=== PATIENT | male | born 1930 | race Caucasian/White ===

== ENCOUNTER 2018-02-16 17:02 | Inpatient (IN) | payer OTHER ==
--- OUTSIDE RECORDS SUMMARY | 2018-02-16 17:08 | XMS REPORT | Clinical Summary ---
:1930 Author Organization [facility] Address [address] [place] [address] Care Team Providers Name Role Phone Romeo Ahuja MD Primary Care Provider Allergies Active Allergy Reactions Severity Noted Date Comments No Known Drug Allergies 07/26/2016 Current Medications Prescription Sig. Disp. Refills Start Date End Date Status mesalamine Take 2,400 mg by Active (LIALDA) 1.2 gram mouth daily with EC tablet breakfast. potassium chloride Take 20 mEq by Active (K-DUR) 20 MEQ CR mouth 2 (two) tablet times a day. febuxostat Take by mouth Active (ULORIC) 80 mg daily. tablet escitalopram Take 10 mg by Active (LEXAPRO) 10 MG mouth daily. tablet B complex-vitamin Take 1 tablet by Active C-folic acid mouth daily. (FOLBEE PLUS) 5 mg tablet tamsulosin Take 0.4 mg by Active (FLOMAX) 0.4 mg mouth daily. capsule,extended release 24hr simvastatin Take 20 mg by Active (ZOCOR) 20 MG mouth nightly. tablet Lactobacillus Take 1 tablet by Active acidoph-L.bulgar mouth 3 (three) (FLORANEX) 1 times a day. million cell tablet aspirin (ECOTRIN) Take 81 mg by Active 81 MG enteric mouth daily. coated tablet dorzolamide 1 drop 3 (three) Active (TRUSOPT) 2 % times a day. ophthalmic solution albuterol Inhale 2 puffs Active (PROVENTIL every 6 (six) HFA;VENTOLIN HFA) hours as needed 90 mcg/actuation for wheezing. inhaler formoterol Take 20 mcg by Active fumarate nebulization 2 (PERFOROMIST) 20 (two) times a mcg/2 mL nebulizer day. solution latanoprost 1 drop nightly. Active (XALATAN) 0.005 % ophthalmic solution rivaroxaban Take 20 mg by Active (XARELTO) 20 mg mouth. tablet allopurinol Take 300 mg by Active (ZYLOPRIM) 300 MG mouth daily. tablet HYDROcodone-acetam Take 1 tablet by Active inophen (NORCO) mouth every 6 5-325 mg per (six) hours as tablet needed for moderate pain. furosemide (LASIX) Take 40 mg by Active 40 mg tablet mouth 2 (two) times a day. traMADol (ULTRAM) Take 50 mg by 08/22/20 Discontinued 50 mg tablet mouth every 6 17 (six) hours as needed for moderate pain. cilostazol Take 100 mg by 08/22/20 Discontinued (PLETAL) 100 MG mouth 2 (two) 17 tablet times a day. furosemide 40 mg/4 Take by mouth. 01/23/20 Discontinued mL solution 18 esomeprazole Take 40 mg by 09/07/20 Discontinued (NexIUM) 40 MG mouth daily 17 capsule before breakfast. predniSONE Take 10 mg by 08/22/20 Discontinued (DELTASONE) 10 MG mouth daily. 17 tablet UNABLE TO FIND Inhale 6.2 mg 09/22/20 Discontinued daily. Incruse 17 acetaminophen-code Take 1 tablet by 40 tablet 0 09/17/2017 10/01/20 ine (TYLENOL WITH mouth every 6 17 CODEINE #3) 300-30 (six) hours as mg per tablet needed for moderate pain for up to 40 doses. calcitriol Take 1 capsule 30 capsule 0 09/17/2017 10/17/20 (ROCALTROL) 0.25 (0.25 mcg total) 17 MCG capsule by mouth daily for 30 days. enoxaparin Inject 0.4 mL (40 12 mL 0 09/22/2017 10/22/20 (LOVENOX) 40 mg total) under 17 mg/0.4 mL syringe the skin daily for 30 days. acetaminophen-code Take 1 tablet by 40 tablet 0 01/30/2018 02/10/20 ine (TYLENOL WITH mouth every 6 18 CODEINE #3) 300-30 (six) hours as mg per tablet needed for moderate pain for up to 40 doses. 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 Symptoms seem to be questionably worsening. ABIs slightly worse, now 0.3 on R, 0.6 on the L. Plan for bilateral leg arterial duplex. Atherosclerosis of arteries of extremities 04/12/2012 Chronic obstructive pulmonary disease 04/10/2012 Coronary atherosclerosis 04/10/2012 Gout 04/10/2012 Heart failure 04/10/2012 Swelling of limb 04/10/2012 Encounters Date Type Specialty Care Team Description 02/09/2018 Orders Only Cardiovascular Chris PAD (peripheral ÁNGEL Hastings artery disease) (Primary Dx) 01/30/2018 Refill Cardiovascular Darling Perez RN 01/23/2018 Office Visit Rosemarie Mansfield, Visit for wound MD check (Primary Dx) 12/05/2017 Office Visit Cardiovascular Rosemarie Amanda, Visit for wound MD check (Primary Dx) 11/14/2017 Office Visit Cardiovascular Rosemarie Amanda, Visit for wound MD check (Primary Dx) 11/09/2017 Telephone Darling Mi RN 11/07/2017 Office Visit Cardiovascular Rosemarie Amanda, Visit for wound MD check (Primary Dx) 11/04/2017 Office Visit Cardiovascular Rosemarie Amanda Wound check, MD abscess (Primary Dx) 11/03/2017 Telephone Cardiovascular Chris Deep vein ÁNGEL Hastings thrombosis (DVT) of right lower extremity, unspecified chronicity, unspecified vein (Primary Dx) 10/17/2017 Office Visit Rosemarie Mansfield, Visit for wound MD check (Primary Dx) 10/07/2017 Telephone Darling Mi RN 09/16/2017 Anesthesia Event Cardiothoracic Surgery Dev Roman 09/16/2017 Procedure Pass Cardiothoracic Surgery 09/16/2017 Surgery Cardiothoracic Surgery Rosemarie Amanda, RIGHT POPLITEAL MD EXPOSURE AND ANGIOGRAM 09/11/2017 Anesthesia Event Cardiothoracic Surgery Anselmo Sorenson, TRACY 09/11/2017 Procedure Pass Cardiothoracic Surgery 09/11/2017 Surgery Cardiothoracic Surgery Estefnaia Desai Arteriogram MD Qamar diagnostic, Right 09/11/2017 Procedure Pass Cardiothoracic Surgery 09/09/2017 Anesthesia Event Cardiothoracic Surgery Roman, Dorissa 09/08/2017 Anesthesia Event Cardiothoracic Surgery Roman, Dorissa 09/08/2017 Procedure Pass Cardiothoracic Surgery 09/08/2017 Surgery Cardiothoracic Surgery Rosemarie Amanda DIAGNOSTIC MD ARTERIOGRAM 09/07/2017 - Hospital Encounter Cardiology Maurice Shahram PAD (peripheral artery disease) (Primary Dx); 09/22/2017 MD Rich Critical lower limb ischemia 09/07/2017 Ancillary Orders Procedural Cardiology PAD (peripheral artery disease) 09/07/2017 Orders Only Cardiovascular [facility] Critical lower limb , [place], [employer] ischemia (Primary Dx) 09/07/2017 Ancillary Orders Cardiovascular Estefania Desai PAD (law Foote MD artery disease) 08/22/2017 Office Visit Cardiovascular Estefania Desai PAD (law Foote MD artery disease) (Primary Dx) 08/02/2017 Orders Only Cardiovascular Solano, PAD (peripheral Susu artery disease) (Primary Dx) 07/18/2017 Orders Only Cardiovascular Estefania Desai PVD (law Foote MD vascular disease) (Primary Dx) 07/18/2017 Orders Only Cardiovascular Estefania Desai PVD (law Foote MD vascular disease) (Primary Dx) 07/18/2017 Orders Only Cardiovascular Estefania Desai PVD (law Foote MD vascular disease) (Primary Dx) 04/04/2017 Office Visit Cardiovascular Pinky, Claudication Phil Martinez (Primary Dx) after 02/15/2017 Family History Relation Name Status Comments Father Mother Social History Tobacco Use Types Packs/Day Years Used Date Former Smoker Cigarettes Quit: 1994 Smokeless Tobacco: Never Used Alcohol Use Drinks/Week oz/Week Comments No STOPPED DRINKING 1994 Sex Assigned at Date Recorded Not on file Last Filed Vital Signs Vital Sign Reading Time Taken Blood Pressure 97/63 01/23/2018 9:35 AM [employer] Pulse 97 01/23/2018 9:35 AM [employer] Temperature 35.5 C (95.9 F) 01/23/2018 9:35 AM [employer] Respiratory Rate 14 01/23/2018 9:35 AM [employer] Oxygen Saturation 96% 09/22/2017 4:44 PM CDT Inhaled Oxygen Concentration - - Weight 67.6 kg (149 lb) 10/17/2017 10:41 AM [employer] Height 165.1 cm (5' 5") 01/23/2018 9:35 AM [employer] Body Mass Index 26.39 10/17/2017 10:41 AM [employer] Plan of Treatment Date Type Specialty Care Team Description 07/26/2018 Appointment Procedural Cardiology Estefania Desai MD [address] [place] [address] [phone] 07/25/2019 Appointment Procedural Cardiology Estefania Desai MD [address] [phone] Health Maintenance Due Date Last Done Comments ZOSTER VACCINE 1988 PNEUMOCOCCAL POLYSACCHARIDE VACCINE AGE 65 AND OVER 1993 PNEUMOCOCCAL-13 1993 INFLUENZA VACCINE 06/28/2017 Implants Implanted Type Area Buffer Nickel Device Expiration Model / Identifier Date Serial / Lot Eliot [id number] Marrowstim Pad Kit - [id number] Medical BIOMET 800 0611 / Implanted: Qty: 1 on 07/26/2016 by Phil Vance MD [employer] / [employer] Research Eliot [id number] Cbma Convenience Kit - [id number] Medical BIOMET 800 0710 / Implanted: Qty: 1 on 07/26/2016 by Phil Vance MD [employer] / [employer] Research Eliot [id number] Fluid Delivery Instrument - [id number] Medical BIOMET 800 [id number] / Implanted: Qty: 2 on 07/26/2016 by Phil Vance MD [employer] / [employer] Research Eliot [id number] Biomet Biologics Centrifuge - [id number] Medical BIOMET [id number] / Implanted: Qty: 1 on 07/26/2016 by Phil Vance MD [employer] / & Research Eliot [id number] Counterbalance Centrifuge - [id number] Medical BIOMET 800 0508 / Implanted: Qty: 1 on 07/26/2016 by Phil Vance MD [employer] / & Research Eliot [id number] Spare Bucket Kits - [id number] Medical BIOMET [id number] / Implanted: Qty: 1 on 07/26/2016 by Phil Vance MD [employer] / & Research Fibrin Sealant Patch Evarrest - [id number] Surgical N/A: ETHICON 2018 [id number] / Implanted: 09/16/2017 (Quantity not on file) Implants; N/A ENDO-SURGERY / Expanders; [id number] Extenders; Surgical Wires Procedures Procedure Name Priority Date/Time Associated Diagnosis Comments AL AN ELECTIVE Routine 09/16/2017 1:53 PM ENDOTRACHEAL AIRWAY CDT Procedure Note - Karl Bergman MD - 09/16/2017 11:38 AM CDT Airway Date/Time: 09/16/2017 11:10 AM Performed by: KARL BERGMAN Authorized by: KARL BERGMAN Location: OR Urgency: Elective Anesthesiologist: KARL BERGMAN Resident/EQUINE PHARMACOLOGY TECHNICIAN: JONATAN BROWN Other Anesthesia Staff: DEV ROMAN Performed by: other anesthesia staff Preoxygenated with 100% O2: Yes C-spine Precautions Maintained Throughout: Yes Mask Ventilation: Easy mask Final Airway Type: Endotracheal airway Final Endotracheal Airway: ETT Cuffed: Yes Devices/Methods Used in Placement: Intubating stylet Insertion Site: Oral Blade Type: Quinn Laryngoscope Blade/Videolaryngoscope Blade Size: 2 ETT Size (mm): 8.0 Cuff at minimum occlusion pressure: Yes Measured from: Lips ETT to Lips (cm): 23 Placement Verified by: CO2 detection, direct visualization and equal breath sounds Rapid Sequence Induction (RSI): No Modified RSI: No Number of Attempts at Approach: 1 ARTERIAL LINE Routine 09/16/2017 12:28 PM CDT Procedure Note - Karl Bergman MD - 09/16/2017 11:39 AM CDT Arterial line Performed by: KARL BERGMAN Authorized by: KARL BERGMAN Patient Location: Pre-op Start Time: 09/16/2017 11:39 AM End Time: 09/16/2017 11:39 AM Staff: Anesthesiologist: KARL BERGMAN Other Staff: DEV ROMAN Performed by: Other staff Pre-procedure: patient identified, IV checked, site and side verified, risks and benefits discussed, procedure verified, surgical consent complete, patient position confirmed, monitors and equipment checked and pre-op evaluation complete MSBT: antiseptic used, all elements of maximal sterile barrier technique followed, hand hygiene performed, cap/gown used by other personnel and solutions labeled TIme Out Performed: 09/16/2017 11:40 AM Indications: Indications: hemodynamic monitoring Anesthesia: Anesthesia: Local infiltration Procedure Details: Arterial Line placement: Placed pre-induction Line placement site: Radial Line placement side: Right Arterial line gauge: 20 G Number of attempts: 1 Ultrasound guidance used: No Post-procedure: Post-procedure: Sterile dressing applied Post procedure circulation, sensation, movement: Normal and unchanged Patient tolerance: Patient tolerated the procedure well with no immediate complications CV JOSE MANUEL PROCEDURE PACEMAKER EVALUATION Routine 09/12/2017 3:49 PM CDT AL AN ELECTIVE SUPRAGLOTTIC AIRWAY Routine 09/11/2017 9:45 AM CDT Procedure Note - Anselmo Sorenson CRNA - 09/11/2017 9:14 AM CDT Airway Performed by: WILLIAM COBB Authorized by: WILLIAM COBB Location: OR Urgency: Elective Difficult Airway: No Anesthesiologist: WILLIAM COBB Resident/EQUINE PHARMACOLOGY TECHNICIAN: ANSELMO SORENSON Performed by: resident/EQUINE PHARMACOLOGY TECHNICIAN Preoxygenated with 100% O2: Yes C-spine Precautions Maintained Throughout: Yes Mask Ventilation: Easy mask Final Airway Type: Supraglottic airway Final LMA: I-Gel LMA Size: 4 Number of Attempts at Approach: 1 atraumatic ARTERIAL LINE Routine 09/11/2017 9:44 AM CDT Procedure Note - Anselmo Sorenson CRNA - 09/11/2017 9:15 AM CDT Arterial line Performed by: WILLIAM COBB Authorized by: WILLIAM COBB Patient Location: OR Staff: Anesthesiologist: WILLIAM COBB Performed by: Anesthesiologist Pre-procedure: patient identified, IV checked, site and side verified, risks and benefits discussed, procedure verified, surgical consent complete, patient position confirmed, monitors and equipment checked and pre-op evaluation complete MSBT: antiseptic used, all elements of maximal sterile barrier technique followed, hand hygiene performed, cap/gown used by other personnel and solutions labeled Indications: Indications: multiple ABGs and hemodynamic monitoring Anesthesia: Anesthesia: General Procedure Details: Arterial Line placement: Placed pre-induction Line placement site: Radial Line placement side: Right Arterial line gauge: 20 G Number of attempts: 1 Ultrasound guidance used: Yes Post-procedure: Post-procedure: Sterile dressing applied Post procedure circulation, sensation, movement: Normal and unchanged Patient tolerance: Patient tolerated the procedure well with no immediate complications AL AN ELECTIVE SUPRAGLOTTIC AIRWAY Routine 09/08/2017 6:32 PM CDT Procedure Note - Dominik Patino CRNA - 09/08/2017 6:31 PM CDT Airway Performed by: DOMINIK PATINO Authorized by: GLENYS REECE Location: OR Urgency: Elective Difficult Airway: No Anesthesiologist: GLENYS REECE Resident/EQUINE PHARMACOLOGY TECHNICIAN: DOMINIK PATINO Preoxygenated with 100% O2: Yes C-spine Precautions Maintained Throughout: Yes Final Airway Type: Supraglottic airway Final LMA: Classic (igel 4) LMA Size: 4 Number of Attempts at Approach: 1 Atraumatic x1 attempt ECHOCARDIOGRAM 2D COMPLETE W Routine 09/08/2017 1:51 PM CDT Results for this MMODE SPECTRAL COLOR DOPPLER procedure are in the (02725) results section. after 02/15/2017 Results PV duplex venous lower extremity (11/04/2017 12:42 PM) Specimen Performing Laboratory [facility] [address] [place] [address] Narrative PER[facility]HERAL [facility]ASCULAR LABORATORY Lower Extremity Venous Duplex Report [id number] [facility] [address] [address] [facility].Name:Zack ROWLEY.ID:[id number] .Date: 11/04/2017 Refer.MD:ROSEMARIE AMANDA MD Exam Time: 11:50:00 AM Study Type:LE Venous Height:63inDOBAge:1929,87 Y Sex: MALESonogrphr: Cordelia Nieto RVT TapeVol: KF, CPT - 4: 05853 Echo Event ID:[id number] Order ID:[id number] Reason for Study:Right lower extremity pain and swelling and per patient was told he has a blood clot. Procedures:12/16/2011ngioplasty of the left anterior tibial artery, 11/16/2013left femoral to popliteal artery bypass graft (ipsilat reversed saphenous vein), 10/18/2014 angioplasty of the right peroneal artery and left anterior tibial artery, 12/23/2015 angioplasty of the proximal anastomosis of the left SFA to popliteal artery bypass Race:B SUMMARY: DUPLEX SCAN OBSERVATIONS Bass scale and color Doppler imaging of the right lower extremity demonstrates: Deep Veins RightLeft CFV Patent Patent Femoral Mid Patent Profunda Patent Popliteal Patent PT (prox) Not Visualized PT (dist) Not Visualized Peroneal Not Visualized Superficial Veins GSV (prox) Patent (above knee) GSV (dist) Patent (below knee) SSVPatent RIGHT:Normal compressibility with no evidence of echogenic material in the lumen of the above visualized veins. Colorflow and Doppler signals demonstrate patency.There is a non-vascular structure in the proximal calf measuring 1.04 x 3.78 x 10.4 cm.The posterior tibial and peroneal veins were not visualized due to edema. LEFT: Normal findings in the common femoral vein. Patient seen in clinic today by Dr. Amanda. PHYSICIAN INTERPRETATION: 1. No evidence of venous thrombosis, right lower extremity 2. Doppler signals obtained in the bilateral common femoral vein are not comparable with the left more pulsatile than the right.. 3.Right posterior tibial and peroneal veins were not visualized due to edema. Signed 11/07/2017 08:56 AM Rosemarie Amanda MD, RPVI Procedure Note Interface, Radiology Results In - 11/07/2017 8:57 AM DIRECT[employer] SERVICES PERIPHERAL VASCULAR LABORATORY Lower Extremity Venous Duplex Report [id number] [facility], [address], [place] [address] Pat.Name: HAROLDO ROWLEY Pat.ID: [id number] .Date: 11/04/2017 Refer.MD: ROSEMARIE AMANDA MD Exam Time: 11:50:00 AM Study Type:LE Venous Height: 63in Age: 9 1930,87Y Sex: MALE Sonogrphr: Cordelia Nieto RVT Tape Vol: KF, CPT - 4: 22511 Echo Event ID:[id number] Order ID: [id number] Reason for Study:Right lower extremity pain and swelling and per patient was told he has a blood clot. Procedures:12/16/2011 angioplasty of the left anterior tibial artery, 11/16/2013 left femoral to popliteal artery bypass graft (ipsilat reversed saphenous vein), 10/18/2014 angioplasty of the right peroneal artery and left anterior tibial artery, 12/23/2015 angioplasty of the proximal anastomosis of the left SFA to popliteal artery bypass Race: B SUMMARY: DUPLEX SCAN OBSERVATIONS Bass scale and color Doppler imaging of the right lower extremity demonstrates: Deep Veins Right Left CFV Patent Patent Femoral Mid Patent Profunda Patent Popliteal Patent PT (prox) Not Visualized PT (dist) Not Visualized Peroneal Not Visualized Superficial Veins GSV (prox) Patent (above knee) GSV (dist) Patent (below knee) SSV Patent RIGHT: Normal compressibility with no evidence of echogenic material in the lumen of the above visualized veins. Colorflow and Doppler signals demonstrate patency. There is a non-vascular structure in the proximal calf measuring 1.04 x 3.78 x 10.4 cm. The posterior tibial and peroneal veins were not visualized due to edema. LEFT: Normal findings in the common femoral vein. Patient seen in clinic today by Dr. Amanda. PHYSICIAN INTERPRETATION: 1. No evidence of venous thrombosis, right lower extremity 2. Doppler signals obtained in the bilateral common femoral vein are not comparable with the left more pulsatile than the right.. 3. Right posterior tibial and peroneal veins were not visualized due to edema. Signed 11/07/2017 08:56 AM Rosemarie Amanda MD, RPVI Estimated GFR (09/21/2017 4:00 AM)Only the most recent of14 resultswithin the time period is included. Component Value Ref Range GFR Non Af Amer 52 (A) mL/min/1.73 m2 GFR Af Amer 63 mL/min/1.73 m2 Comment: Chronic kidney disease: <60 mL/min/1.73m2 Kidney failure: <15 mL/min/1.73m2 The estimated GFR is calculated from the IDMS-traceable Modification of Diet in Renal Disease Equation. The accuracy of the calculation is poor when the creatinine is normal. Calculated values >90 mL/min/1.73m2 are not reported. This equation has not been validated in children (<18 years), women, the elderly (>70 years), or ethnic groups other than Caucasians and Americans. Specimen Performing Laboratory Plasma specimen [facility] DEPARTMENT OF PATHOLOGY AND [address] [address] Phosphorus level (09/21/2017 4:00 AM)Only the most recent of5 resultswithin the time period is included. Component Value Ref Range Phosphorus 3.9 2.4 - 4.5 mg/dL Specimen Performing Laboratory Plasma specimen [facility] OF PATHOLOG[facility] [address] [address] Magnesium level (09/21/2017 4:00 AM)Only the most recent of9 resultswithin the time period is included. Component Value Ref Range Magnesium 2.1 1.6 - 2.4 mg/dL Specimen Performing Laboratory Plasma specimen [facility] PATHOLOGY [address] [address] Basic metabolic panel (09/21/2017 4:00 AM)Only the most recent of13 resultswithin the time period is included. Component Value Ref Range Sodium 141 135 - 148 mEq/L Potassium 4.1 3.5 - 5.0 mEq/L Chloride 104 98 - 112 mEq/L CO2 22 (L) 24 - 31 mEq/L Anion gap 15 7 - 15 mEq/L Comment: Starting from February , anion gap calculation no longer incorporates potassium. Please note the change. BUN 33 (H) 8 - 23 mg/dL Creatinine 1.3 (H) 0.7 - 1.2 mg/dL Glucose 101 (H) 65 - 99 mg/dL Calcium 9.0 8.8 - 10.2 mg/dL Specimen Performing Laboratory Plasma specimen [facility] [address] [address] POC glucose (09/19/2017 9:09 PM)Only the most recent of9 resultswithin the time period is included. Component Value Ref Range POC glucose 124 (H) 65 - 99 mg/dL Comment: [facility] Notified RN Meter ID: [id number] Manager Retirement: Mitchell John Specimen Performing Laboratory [facility] DEPARTMENT OF PATHOLOGY AND [facility] [address] [place] [address] CBC with platelet and differential (09/19/2017 5:00 AM)Only the most recent of12 resultswithin the time period is included. Component Value Ref Range WBC 6.52 4.50 - 11.00 k/uL RBC 4.18 (L) 4.40 - 6.00 m/uL HGB 9.7 (L) 14.0 - 18.0 g/dL HCT 32.4 (L) 41.0 - 51.0 % MCV 77.5 (L) 82.0 - 100.0 fL MCH 23.2 (L) 27.0 - 34.0 pg MCHC 29.9 (L) 31.0 - 37.0 g/dL RDW - SD 53.3 37.0 - 55.0 fL MPV 11.6 8.8 - 13.2 fL Platelet count 124 (L) 150 - 400 k/uL Nucleated RBC 0.30 /100 WBC Neutrophils 66.6 39.0 - 69.0 % Lymphocytes 19.3 (L) 25.0 - 45.0 % Monocytes 9.7 0.0 - 10.0 % Eosinophils 3.4 0.0 - 5.0 % Basophils 0.5 0.0 - 1.0 % Immature granulocytes 0.5Comment: "Immature granulocytes" 0.0 - 1.0 % (promyelocytes, myelocytes, metamyelocytes) Specimen Performing Laboratory Blood [facility] DEPARTMENT OF PATHOLOGY AND [facility] [address] [place] [address] Partial thromboplastin time, activated (09/17/2017 6:30 AM)Only the most recent of4 resultswithin the time period is included. Component Value Ref Range PTT 34.4 23.0 - 36.0 sec Comment: PTT therapeutic range for unfractionated heparin is 61.0-112.0 seconds which corresponds to Anti-Xa 0.3-0.7 U/ml. Specimen Performing Laboratory Blood [facility] DEPARTMENT OF PATHOLOGY AND [facility] [address] [place] [address] Prothrombin time with INR (09/17/2017 6:30 AM)Only the most recent of5 resultswithin the time period is included. Component Value Ref Range Prothrombin time 14.8 12.0 - 15.0 sec INR 1.1 Comment: The International Normalized Ratio (INR) is a therapeutic monitoring tool for patients who are stable on oral anticoagulant therapy. An INR of 2.0-3.0 is suggested for deep vein thrombosis/pulmonary embolism. Specimen Performing Laboratory Blood [facility] DEPARTMENT OF PATHOLOGY [address] [address] Sodium level, syringe (09/16/2017 12:45 PM)Only the most recent of4 resultswithin the time period is included. Component Value Ref Range Sodium, syringe 139 135 - 148 mEq/L Specimen Performing Laboratory Blood [facility]OLOG[facility] [address] [address] Potassium, syringe (09/16/2017 12:45 PM)Only the most recent of4 resultswithin the time period is included. Component Value Ref Range Potassium, syringe 4.1 3.5 - 5.0 mEq/L Specimen Performing Laboratory Blood [facility] [address] [address] Ionized calcium, arterial (09/16/2017 12:45 PM)Only the most recent of4 resultswithin the time period is included. Component Value Ref Range Ionized calcium, arterial 1.10 (L) 1.11 - 1.32 mmol/L Specimen Performing Laboratory Blood [facility] [address] [address] Hemoglobin, syringe (09/16/2017 12:45 PM)Only the most recent of4 resultswithin the time period is included. Component Value Ref Range Hemoglobin, syringe 9.4 (L) 14.0 - 18.0 g/dL Specimen Performing Laboratory Blood [facility] [address] [address] Glucose level, syringe (09/16/2017 12:45 PM)Only the most recent of4 resultswithin the time period is included. Component Value Ref Range Glucose, syringe 115 (H) 65 - 99 mg/dL Specimen Performing Laboratory Blood [facility] [address] [address] Arterial blood gas (09/16/2017 12:45 PM) Component Value Ref Range pH, arterial 7.41 7.35 - 7.45 pCO2, arterial 31 (L) 35 - 45 mmHg pO2, arterial 232 (H) 80 - 90 mmHg Bicarbonate, arterial 19.4 (L) 21.0 - 28.0 mmol/L Base excess, arterial -4 (L) -2 - 2 mEq/L O2 saturation, arterial 99 95 - 100 % Specimen Performing Laboratory Blood [facility] DEPARTMENT OF PATHOLOGY AND [facility] [address] [place] [address] Arterial blood gas, corrected (09/16/2017 11:58 AM)Only the most recent of3 resultswithin the time period is included. Component Value Ref Range pH, arterial 7.35 7.35 - 7.45 pCO2, arterial 31 (L) 35 - 45 mmHg pO2, arterial 266 (H) 80 - 90 mmHg Temperature, Celsius 37.0 Degrees C O2 saturation, arterial 99 95 - 100 % pH, arterial corrected 7.35 pCO2, arterial corrected 31 mmHg pO2, arterial corrected 266 mmHg Base excess, arterial -8 (L) -2 - 2 mEq/L Specimen Performing Laboratory Blood [facility] DEPARTMENT OF PATHOLOGY [address] [address] Prepare RBC (09/16/2017 4:25 AM) Component Value Ref Range Product name Apheresis -1 LR #2 Unit number [id number] Product code [id number] Dispense status Returned to BB not transfused Blood expiration date 20170922 Blood type code 5100 Blood type O POSITIVE Product name Apheresis -1 LR #2 Unit number [id number] Product code [id number] Dispense status Returned to BB not transfused Blood expiration date 20170922 Blood type code 5100 Blood type O POSITIVE Specimen Performing Laboratory [facility] DEPARTMENT OF PATHOLOGY AND [facility] [address] [place] [address] Type and screen (09/16/2017 4:25 AM)Only the most recent of3 resultswithin the time period is included. Component Value Ref Range ABO grouping O Rh type POS Antibody screen (gel) NEG Specimen Performing Laboratory [facility] DEPARTMENT OF PATHOLOGY AND [facility] [address] [place] [address] Pv duplex arterial lower extremity (09/14/2017 10:10 AM)Only the most recent of2 resultswithin the time period is included. Specimen Performing Laboratory [facility] [address] [place] [address] Narrative Vascular Ultrasound Laboratory Lower Extremity Arterial Duplex Report [id number] [address] Pat.Name:Zack ROWLEY.ID:[id number] .Date: 09/14/2017Refer.MD:ESTEFANIA DESAI MD Exam Time: 10:13:00 AM Study Type:LE Arterial Height:63inWeight:145lb BSA: 1.69 m2 DOBAge:1930,87Y Sex: MALESonogrphr: Hrainder Hazel RN, RVS Pat. Stat.:Inpatient Room:[facility] TapeVol: PM, CPT - 4: 46681 Echo Event ID:[id number] Order ID:[id number] Reason for Study:Right leg pain, right popliteal artery enlarged and occluded. Assess flow in right leg and measure diameter of bilateral popliteal artery. Race:B SUMMARY: DUPLEX SCAN OBSERVATIONS: RIGHT:There is calcified plaque noted in the common femoral, profunda femoris and superficial femoral arteries. Decreased velocities and colorflow. There is a collateral noted extending from the distal superficial femoral artery. Absent colorflow and Doppler signals of the distal superficial femoral artery just distal to the visualized collateral. The popliteal artery appears enlarged (measuring 1.39 x 1.18 cm) with echogenic material filling the arterial lumen, absent coloflow and Doppler signals. Calcified plaque is noted in the posterior tibial artery with absent colorflow and Doppler signals. Calcified plaque is noted in the peroneal and anterior tibial artery with monophasic Doppler signals noted. Flow is absent in the distal anterior tibial artery. DOPPLER FINDINGS: ARTERYLOCATIONPSV (cm/sec) RIGHTCommon Femoral Proximal-third 23.3 cm/sec Profunda Femoris Distal-third 41.0 cm/sec Superficial Femoral Proximal-third 36.8cm/sec Mid-third22 cm/sec Distal- third0 cm/sec RdzhkioriyRrsnfssv28.5cm/sec PoplitealProximal-third 0 cm/sec Posterior TibialProximal-third 0 cm/sec Mid-third0 cm/sec Distal-third0 cm/sec Peroneal Artery Proximal-third 14.4cm/sec Mid-third13.3cm/sec Distal-third12.7cm/sec Anterior Tibial Proximal-third 15.5cm/sec Mid-third14.4cm/sec Distal-third0.0cm/sec ANKLE/BRACHIAL INDEX: RIGHTLEFT Brachial Artery Pressure 100 mmHgIV DP19 [id number] PT0 mmHg0 mmHg KAREN DP0.190.31 KAREN PT TOE/BRACHIAL INDEX: Great Toe0 mmHg0 mmHg TBI0 0 Popliteal Artery Measurements RIGHTLEFT 1.39 x 1.18cm 0.67 x 0.67cm PRELIMINARY FINDINGS: 1.Decreased velocities noted in the right common femoral, profunda femoris and superficial femoral arteries. 2. The right distal segment of the superficial femoral artery is occluded with a collateral noted proximal to the occlusion. 3.The right popliteal artery appears enlarged (measuring 1.39 x 1.18 cm) with echogenic material filling the arterial lumen, absent coloflow and Doppler signals. 4. Occluded right posterior tibial artery. 5. Monophasic Doppler signals in the right peroneal and anterior tibial artery. 6. Ankle/brachial index bilaterally is in the severe/ ischemic range. 7. Toe/brachial index is in the severe range bilaterally. PHYSICIAN INTERPRETATION: Arterial duplex examination ofright lower extremity demonstrates multi-level arterial occlusive disease. ABIs arein the severe/ ischemic range bilaterally. Toe/brachial index is in the severe range bilaterally. Signed 09/14/2017 08:31 PM Phillip Regalado MD, RPVI Procedure Note Interface, Radiology Results In - 09/14/2017 8:32 PM CDT Vascular Ultrasound Laboratory Lower Extremity Arterial Duplex Report [id number] [place] [address] Pat.Name: HAROLDO ROWLEY Pat.ID: [id number] .Date: 09/14/2017 Refer.MD: ESTEFANIA DESAI MD Exam Time: 10:13:00 AM Study Type:LE Arterial Height: 63in Weight: 145lb BSA: 1.69 m2 Age: 7 1930,87Y Sex: MALE Sonogrphr: Harinder Hazel, RN, RVS Pat. Stat.:Inpatient Room: [facility] Tape Vol: PM, CPT - 4: 45492 Echo Event ID:[id number] Order ID: [id number] Reason for Study:Right leg pain, right popliteal artery enlarged and occluded. Assess flow in right leg and measure diameter of bilateral popliteal artery. Race: B SUMMARY: DUPLEX SCAN OBSERVATIONS: RIGHT: There is calcified plaque noted in the common femoral, profunda femoris and superficial femoral arteries. Decreased velocities and colorflow. There is a collateral noted extending from the distal superficial femoral artery. Absent colorflow and Doppler signals of the distal superficial femoral artery just distal to the visualized collateral. The popliteal artery appears enlarged (measuring 1.39 x 1.18 cm) with echogenic material filling the arterial lumen, absent coloflow and Doppler signals. Calcified plaque is noted in the posterior tibial artery with absent colorflow and Doppler signals. Calcified plaque is noted in the peroneal and anterior tibial artery with monophasic Doppler signals noted. Flow is absent in the distal anterior tibial artery. DOPPLER FINDINGS: ARTERY LOCATION PSV (cm/sec) RIGHT Common Femoral Proximal-third 23.3 cm/sec Profunda Femoris Distal-third 41.0 cm/sec Superficial Femoral Proximal-third 36.8cm/sec Mid-third 22 cm/sec Distal- third 0 cm/sec Collateral Proximal 20.5cm/sec Popliteal Proximal-third 0 cm/sec Posterior Tibial Proximal-third 0 cm/sec Mid-third 0 cm/sec Distal-third 0 cm/sec Peroneal Artery Proximal-third 14.4cm/sec Mid-third 13.3cm/sec Distal-third 12.7cm/sec Anterior Tibial Proximal-third 15.5cm/sec Mid-third 14.4cm/sec Distal-third 0.0cm/sec ANKLE/BRACHIAL INDEX: RIGHT LEFT Brachial Artery Pressure 100 mmHg IV DP 19 mmHg 31mmHg PT 0 mmHg 0 mmHg KAREN DP 0.19 0.31 KAREN PT * * TOE/BRACHIAL INDEX: Great Toe 0 mmHg 0 mmHg TBI 0 0 Popliteal Artery Measurements RIGHT LEFT 1.39 x 1.18cm 0.67 x 0.67cm PRELIMINARY FINDINGS: 1. Decreased velocities noted in the right common femoral, profunda femoris and superficial femoral arteries. 2. The right distal segment of the superficial femoral artery is occluded with a collateral noted proximal to the occlusion. 3. The right popliteal artery appears enlarged (measuring 1.39 x 1.18 cm) with echogenic material filling the arterial lumen, absent coloflow and Doppler signals. 4. Occluded right posterior tibial artery. 5. Monophasic Doppler signals in the right peroneal and anterior tibial artery. 6. Ankle/brachial index bilaterally is in the severe/ ischemic range. 7. Toe/brachial index is in the severe range bilaterally. PHYSICIAN INTERPRETATION: Arterial duplex examination of right lower extremity demonstrates multi-level arterial occlusive disease. ABIs are in the severe/ ischemic range bilaterally. Toe/brachial index is in the severe range bilaterally. Signed 09/14/2017 08:31 PM Phillip Regalado MD, RPVI Pv vein mapping lower extremity (09/14/2017 10:00 AM) Specimen Performing Laboratory [facility] [address] Vascular Ultrasound Laboratory Lower Extremity Vein Mapping Report [address] [place] [address].Name:Zack ROWLEY.ID:[id number] .Date: 09/14/2017Refer.MD:ESTEFANIA DESAI MD Exam Time: 10:39:00 AM Study Type:LE Vein Mapping Height:63inWeight:145lb BSA: 1.69 m2 DOBAge:1930,87Y Sex: MALESonogrphr: Harinder Hazel RN, RVS Pat. Stat.:Inpatient Room:[facility] TapeVol: PM, CPT - 4: 36550 Echo Event ID:[id number] Order ID:[id number] Reason for Study:Right leg vein mapping for possible bypass graft. Previous left leg greater saphenous vein reverse bypass graft. Race:B SUMMARY: DUPLEX SCAN OBSERVATIONS Deep VeinsSuperficial Veins Right Right GSV (prox) Normal CFV Normal(above knee) Femoral NormalGSV (dist) Normal Profunda Normal(below knee) Popliteal Normal PT (prox) Normal SSV Not Visualized PT (dist) Normal Peroneal Normal RIGHT: There is normal compressibility with no evidence of echogenic material noted within the lumen of the visualized veins. Colorflow and Doppler signals are normal. PRELIMINARY FINDINGS 1. Normal venous duplex exam of the visualized veins. PHYSICIAN INTERPRETATION Venous examination of the right lower extremity and leftgroin demonstrated no evidence of venous thrombosis in the visualized veins. MEASUREMENTS: LEVEINS Right SFJ SFJ GSV AP0.57 cmSFJ Depth 1.14 cm Right Prox Thigh Prox Thigh GSV0.3 cm Right Upper Thigh Upper Thigh Dep1.13 cm Right Mid Thigh Mid Thigh GSV A0.44 cm Mid Thigh Depth1.26 cm Right Dist Thigh Dist Thigh GSV 0.23 cm Right Lower Thigh Lower Thigh Dep0.94 cm Right Knee Knee GSV AP 0.19 cmKnee Depth0.67 cm Right Prox Calf Prox Calf GSV A0.15 cm Right Upper Calf Upper Calf Dept0.14 cm Right Mid Calf Mid Calf GSV AP0.13 cm Mid Calf Depth0.18 cm Right Dist Calf Dist Calf GSV A0.14 cm Right Ankle Ankle Depth 0.19 cm Signed 09/14/2017 08:28 PM Phillip Regalado MD, RPVI Procedure Note Interface, Radiology Results In - 09/14/2017 8:28 PM CDT Vascular Ultrasound Laboratory Lower Extremity Vein Mapping Report [address] [id number] Pat.Name: HAROLDO ROWLEY.ID: [id number] .Date: 09/14/2017 Refer.MD: ESTEFANIA DESAI MD Exam Time: 10:39:00 AM Study Type:LE Vein Mapping Height: 63in Weight: 145lb BSA: 1.69 m2 Age: 9 1930,87Y Sex: MALE Sonogrphr: Harinder Hazel RN, RVS Pat. Stat.:Inpatient Room: D5-A Tape Vol: PM, [facility] - 4: 92122 Echo Event ID:[id number] Order ID: [id number] Reason for Study:Right leg vein mapping for possible bypass graft. Previous left leg greater saphenous vein reverse bypass graft. Race: B SUMMARY: DUPLEX SCAN OBSERVATIONS Deep Veins Superficial Veins Right Right GSV (prox) Normal CFV Normal (above knee) Femoral Normal GSV (dist) Normal Profunda Normal (below knee) Popliteal Normal PT (prox) Normal SSV Not Visualized PT (dist) Normal Peroneal Normal RIGHT: There is normal compressibility with no evidence of echogenic material noted within the lumen of the visualized veins. Colorflow and Doppler signals are normal. PRELIMINARY FINDINGS 1. Normal venous duplex exam of the visualized veins. PHYSICIAN INTERPRETATION Venous examination of the right lower extremity and left groin demonstrated no evidence of venous thrombosis in the visualized veins. MEASUREMENTS: LEVEINS Right SFJ SFJ GSV AP 0.57 cm SFJ Depth 1.14 cm Right Prox Thigh Prox Thigh GSV 0.3 cm Right Upper Thigh Upper Thigh Dep 1.13 cm Right Mid Thigh Mid Thigh GSV A 0.44 cm Mid Thigh Depth 1.26 cm Right Dist Thigh Dist Thigh GSV 0.23 cm Right Lower Thigh Lower Thigh Dep 0.94 cm Right Knee Knee GSV AP 0.19 cm Knee Depth 0.67 cm Right Prox Calf Prox Calf GSV A 0.15 cm Right Upper Calf Upper Calf Dept 0.14 cm Right Mid Calf Mid Calf GSV AP 0.13 cm Mid Calf Depth 0.18 cm Right Dist Calf Dist Calf GSV A 0.14 cm Right Ankle Ankle Depth 0.19 cm Signed 09/14/2017 08:28 PM Phillip Regalado MD, [facility] US Abdominal Aorta Screening (09/13/2017 1:28 PM) Specimen Performing Laboratory [facility] [address] [place] [address] Narrative EXAMINATION:US ABDOMINAL AORTA SCREENING CLINICAL HISTORY:Suspected aortic aneurysm COMPARISON:None. TECHNIQUE: Sonographic evaluation of the abdominal aorta was performed with grayscale, color-flow, and spectral analysis. FINDINGS: Technically limited exam due to patient body habitus and overlying bowel gas. A 5.3 cm abdominal aortic aneurysm is present with associated mural thrombus and scattered vascular calcifications. This appears to extend into the bilateral common iliac arteries which are also aneurysmally dilated measuring 2.2 cm on the right and 2.3 cm on the left. Peak systolic velocity is 58 cm/s. Waveforms are unremarkable. IMPRESSION: 5.3 cm AAA with bilateral common iliac artery aneurysms as described above. [id number] Procedure Note Interface, Radiology Results Incoming - 09/13/2017 3:08 PM CDT EXAMINATION: US ABDOMINAL AORTA SCREENING CLINICAL HISTORY: Suspected aortic aneurysm COMPARISON: None. TECHNIQUE: Sonographic evaluation of the abdominal aorta was performed with grayscale, color-flow, and spectral analysis. FINDINGS: Technically limited exam due to patient body habitus and overlying bowel gas. A 5.3 cm abdominal aortic aneurysm is present with associated mural thrombus and scattered vascular calcifications. This appears to extend into the bilateral common iliac arteries which are also aneurysmally dilated measuring 2.2 cm on the right and 2.3 cm on the left. Peak systolic velocity is 58 cm/s. Waveforms are unremarkable. IMPRESSION: 5.3 cm AAA with bilateral common iliac artery aneurysms as described above. [id number] Cv pacemaker defib or ilr interrogation (09/12/2017 3:49 PM) Specimen Performing Laboratory [facility] [address] [place] [address] Cardiac dynamic mra abdomen pelvis lower ext runoff w wo contrast (09/12/2017 3 :15 PM) Specimen Performing Laboratory [facility] [address] [place] [address] Narrative Moffat Uatsdin CMR Report Name: HAROLDO ROWLEY :1930 Scan Date: 2017-09-12 14:11:53 Signed by Estefania Gurrola M.D. (uid:[phone]) 19:25:10. SUMMARY ====== 1.ABDOMINAL AORTA: The supra-renal abdominal aorta has a saccular aneurysm (3.6 x 3.2 cm) but no dissection. 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 The SMA and both renal arteries are of normal caliber without an aneurysm or dissection. The infra-renal abdominal aorta has a large fusiform aneurysm (5.4 cm) with large mural thrombus but no dissection 2.PELVIC AND RIGHT LOWER EXTREMITY: The right common iliac artery has a fusiform aneurysm (3.1 cm) with mural thrombus. The right internal iliac artery is not visualized. The right external, common femoral arteries are of normal caliber without stenosis, aneurysm or dissection. The SFA is 100% occluded at its distal segment. The popliteal arterial segment is subtotally occluded but expands to a normal caliber infra-popliteal arterial segment distally. Normal infra-popliteal arterial system with 3-vessel run off to the right leg without stenosis, aneurysm or dissection. 3.PELVIC AND LEFT LOWER EXTREMITY: The left common iliac artery has a fusiform aneurysm (3 cm) with mural thrombus. The left internal iliac artery is 100% occluded with thrombus. The left external iliac artery is of normal caliber. There is a focal aneurysm of the left common femoral artery (2.4 cm) but with no stenosis or dissection. The supra-popliteal artery has a focal aneurysm (2.2 cm ) but with no stenosis. However, a lateral genicular branch appears to be occluded.Normal popliteal and infra-popliteal arterial system with 3 vessel run off to the left leg without stenosis, aneurysm or dissection. 4. VENOUS SYSTEM:The IVC, hepatic veins, bilateral iliac, femoral, and popliteal veins are of normal caliber without dilatation, thrombus or evidence of extrinsic compression. 5. OTHER:Atrophic kidney changes. Medium-sized (3 cm) left non-enhancing renal cyst. Hiatal hernia VASCULAR ====== LOWER VASCULAR ------ ---- EVALUATION OF THE ABDOMINAL AORTA AND PELVIS COMMENTS (no comments) . ------ . | NO. # EVALUATION DETAILS (Abdominal Aorta and Pelvis) | |-------+ ------ | |1. # The supra renal Abdominal Aorta has a saccular aneurysm that is 4 cm in diameter. | +-------+ ------ + | # ABDOMINAL AORTA (JUXTA RENAL) | | # Dimension A:2.3 cm | +-------+ ------ + | # ABDOMINAL AORTA (INFRA RENAL) | | # Dimension A:5.2 cm | | # Dimension B:5.4 cm | +-------+ ------ + |2. # The infra renal Abdominal Aorta has a fusiform aneurysm | |3. # The proximal Right Common Iliac has a fusiform aneurysm | |4. # The proximal Left Common Iliac has a fusiform aneurysm | . ------ . SCAN INFO ====== GENERAL ------ ---- SEDATION SEDATION USED?:No CONTRAST AGENT TYPE:Other... OTHER TYPE:Feraheme LOT NUMBER:[id number] EXPIRATION DATE:2020-04-27 00:00:00 VOLUME ADMINISTERED:3 ml DOSAGE FOR 0.5M:0.02 mmol/kg SERUM CREATININE:1.4 sCr GFR:50.72 ml/min/1.73m^2 FEMALE:No OR BLACK:No CREATININE DATE:2017-09-12 00:00:00 FERAHEME ADMINISTERED:90 mg LAB RESULT HEMATOCRIT LEVEL:34.9 % HEMATOCRIT DATE:2017-09-12 00:00:00 VITALS HEIGHT:62 in HEIGHT:157.48 cm BODY WEIGHT:145 lbs BODY WEIGHT:65.77 kgs BSA::1.67 m^2 SYSTOLIC BP:113 mmHg DIASTOLIC BP:72 mmHg HEART RATE:75 BPM HEART RHYTHM:Other DESCRIBE HEART RHYTHM::ventricular paced rhythm PULSE SEQUENCE PULSE SEQUENCES:Single-Shot SSFP, IR GRE - Single Shot, Single Shot BB GOYO, Post-Contrast T1 3D GRE, 3D MRA w and w/o contrast SETUP TYPE:Clinical INPATIENT:Yes LOCATION:[facility] INCOMPLETE SCAN:No REASON(S) FOR SCAN:Peripheral vascular disease REFERRING PHYSICIAN:Shahram Decker MD ATTENDING PHYSICIAN:Estefania Gurrola MD TECHNICIANS:Shmear Chilel ASSISTANTS:1) Frank William 2) [place] ------ ---- Patient Account [id number] CPT Codes 24283, [ , ]32336-TA, [ , ]52103-YG, [ , ]89679 ICD10 Codes I73.9, [ , ]I71.4 ADDITIONAL NOTES ------ ---- Imaging was performed using an intravenous infusion of ferumoxytol after consultation with the patient's physician.MRI assessment of liver T2-star values was performed to exclude iron overload.The patient was monitored for more than 60 minutes after administration and tolerated the procedure well and there were no complications.Note use of this agent may lead to interference on MRI of the abdomen for up to 3 months. Patient underwent imaging after interrogation of implanted pacemaker. The device was programmed to VOO mode at 80 beats/min.Patient underwent continuous telemetry and pulse oximetry monitoring throughout the procedure. There were no complications.After completion of the procedure the device was reinterrogated and reprogrammed back to the original settings.Image quality is partially reduced due to metallic artifact from the device generator and device leads, however the above observations can be made. Procedure Note Interface, Radiology Results In - 09/12/2017 7:25 PM CDT [facility] CMR Report Name: HAROLDO ROWLEY Will : 1930 Scan Date: 2017-09-12 14:11:53 Signed by Estefania Gurrola M.D. (uid:[phone]) 19:25:10. SUMMARY 1. ABDOMINAL AORTA: The supra-renal abdominal aorta has a saccular aneurysm ( 3.6 x 3.2 cm) but no dissection. 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 The SMA and both renal arteries are of normal caliber without an aneurysm or dissection. The infra-renal abdominal aorta has a large fusiform aneurysm (5.4 cm) with large mural thrombus but no dissection 2. PELVIC AND RIGHT LOWER EXTREMITY: The right common iliac artery has a fusiform aneurysm (3.1 cm) with mural thrombus. The right internal iliac artery is not visualized. The right external, common femoral arteries are of normal caliber without stenosis, aneurysm or dissection. The SFA is 100% occluded at its distal segment. The popliteal arterial segment is subtotally occluded but expands to a normal caliber infra-popliteal arterial segment distally. Normal infra-popliteal arterial system with 3-vessel run off to the right leg without stenosis, aneurysm or dissection. 3. PELVIC AND LEFT LOWER EXTREMITY: The left common iliac artery has a fusiform aneurysm (3 cm) with mural thrombus. The left internal iliac artery is 100% occluded with thrombus. The left external iliac artery is of normal caliber. There is a focal aneurysm of the left common femoral artery (2.4 cm) but with no stenosis or dissection. The supra-popliteal artery has a focal aneurysm (2.2 cm ) but with no stenosis. However, a lateral genicular branch appears to be occluded. Normal popliteal and infra-popliteal arterial system with 3 vessel run off to the left leg without stenosis, aneurysm or dissection. 4. VENOUS SYSTEM: The IVC, hepatic veins, bilateral iliac, femoral, and popliteal veins are of normal caliber without dilatation, thrombus or evidence of extrinsic compression. 5. OTHER: Atrophic kidney changes. Medium-sized (3 cm) left non-enhancing renal cyst. Hiatal hernia VASCULAR LOWER VASCULAR EVALUATION OF THE ABDOMINAL AORTA AND PELVIS COMMENTS (no comments) . . | NO. # EVALUATION DETAILS (Abdominal Aorta and Pelvis) | |-------+ | | 1. # The supra renal Abdominal Aorta has a saccular aneurysm that is 4 cm in diameter. | +-------+ + | # ABDOMINAL AORTA (JUXTA RENAL) | | # Dimension A: 2.3 cm | +-------+ + | # ABDOMINAL AORTA (INFRA RENAL) | | # Dimension A: 5.2 cm | | # Dimension B: 5.4 cm | +-------+ + | 2. # The infra renal Abdominal Aorta has a fusiform aneurysm | | 3. # The proximal Right Common Iliac has a fusiform aneurysm | | 4. # The proximal Left Common Iliac has a fusiform aneurysm | . . SCAN INFO GENERAL SEDATION SEDATION USED?: No CONTRAST AGENT TYPE: Other... OTHER TYPE: Feraheme LOT NUMBER: [id number] EXPIRATION DATE: 2020-04-27 00:00:00 VOLUME ADMINISTERED: 3 ml DOSAGE FOR 0.5M: 0.02 mmol/kg SERUM CREATININE: 1.4 sCr GFR: 50.72 ml/min/1.73m^2 FEMALE: No OR BLACK: No CREATININE DATE: 2017-09-12 00:00:00 FERAHEME ADMINISTERED: 90 mg LAB RESULT HEMATOCRIT LEVEL: 34.9 % HEMATOCRIT DATE: 2017-09-12 00:00:00 VITALS HEIGHT: 62 in HEIGHT: 157.48 cm BODY WEIGHT: 145 lbs BODY WEIGHT: 65.77 kgs BSA:: 1.67 m^2 SYSTOLIC BP: 113 mmHg DIASTOLIC BP: 72 mmHg HEART RATE: 75 BPM HEART RHYTHM: Other DESCRIBE HEART RHYTHM:: ventricular paced rhythm PULSE SEQUENCE PULSE SEQUENCES: Single-Shot SSFP, IR GRE - Single Shot, Single Shot BB GOYO, Post-Contrast T1 3D GRE, 3D MRA w and w/o contrast SETUP TYPE: Clinical INPATIENT: Yes LOCATION: [facility] INCOMPLETE SCAN: No REASON(S) FOR SCAN: Peripheral vascular disease REFERRING PHYSICIAN: Shahram Decker MD ATTENDING PHYSICIAN: Estefania Gurrola MD TECHNICIANS: Shemar Chilel ASSISTANTS: 1) Frank William 2) [place] Patient Account [id number] CPT Codes 43613, [ , ]60727-TM, [ , ]60737-ZX, [ , ]66913 ICD10 Codes I73.9, [ , ]I71.4 ADDITIONAL NOTES Imaging was performed using an intravenous infusion of ferumoxytol after consultation with the patient's physician. MRI assessment of liver T2-star values was performed to exclude iron overload. The patient was monitored for more than 60 minutes after administration and tolerated the procedure well and there were no complications. Note use of this agent may lead to interference on MRI of the abdomen for up to 3 months. Patient underwent imaging after interrogation of implanted pacemaker. The device was programmed to VOO mode at 80 beats/min. Patient underwent continuous telemetry and pulse oximetry monitoring throughout the procedure. There were no complications. After completion of the procedure the device was reinterrogated and reprogrammed back to the original settings. Image quality is partially reduced due to metallic artifact from the device generator and device leads, however the above observations can be made. Comprehensive metabolic panel (09/12/2017 4:00 AM) Component Value Ref Range Sodium 143 135 - 148 mEq/L Potassium 4.6 3.5 - 5.0 mEq/L Chloride 108 98 - 112 mEq/L CO2 25 24 - 31 mEq/L Anion gap 10 7 - 15 mEq/L Comment: Starting from February , anion gap calculation no longer incorporates potassium. Please note the change. BUN 25 (H) 8 - 23 mg/dL Creatinine 1.4 (H) 0.7 - 1.2 mg/dL Glucose 100 (H) 65 - 99 mg/dL Calcium 8.7 (L) 8.8 - 10.2 mg/dL Protein 6.1 (L) 6.3 - 8.3 g/dL Comment: 4.6-7.0 g/dL 1 week 4.4-7.6 g/dL 7 months-1year5.1-7.3 g/dL 1-2 years5.6-7.5 g/dL >3 years6.0-8.0 g/dL 18-150 6.3-8.3 g/dL Albumin 2.5 (L) 3.5 - 5.0 g/dL A/G ratio 0.7 0.7 - 3.8 Alkaline phosphatase 79 40 - 129 U/L AST 31 10 - 50 U/L ALT 25 5 - 50 U/L Total bilirubin 0.5 0.0 - 1.2 mg/dL Specimen Performing Laboratory Plasma specimen [facility] DEPARTMENT OF PATHOLOGY AND [facility] MEDICINE [address] [place] [address] Total iron binding capacity (09/11/2017 11:00 AM)Only the most recent of2 resultswithin the time period is included. Component Value Ref Range Iron level 47 (L) 59 - 158 ug/dL Iron binding capacity 238 200 - 400 ug/dL % Saturation 19.7 (L) 20.0 - 40.0 % Specimen Performing Laboratory Plasma specimen [facility] DEPARTMENT OF PATHOLOGY AND GENOMIC MEDICINE [address] [place] [address] Ferritin level (09/11/2017 11:00 AM) Component Value Ref Range Ferritin level 178 30 - 400 ng/mL Specimen Performing Laboratory Plasma specimen [facility] DEPARTMENT OF PATHOLOGY AND GENOMIC MEDICINE [address] [place] [address] Troponin (09/09/2017 9:43 AM) Component Value Ref Range Troponin <0.30 0.00 - 0.30 ng/mL Comment: 0.30 - 1.49 ng/mlMay indicate increased risk of acute coronary syndrome. >=1.5 ng/mlConsistent with acute myocardial infarction. The diagnostic value of a single normal or non-diagnostic result is questionable.Serial samples at 2-6 hour intervals are required to rule out acute myocardial injury. Specimen Performing Laboratory Plasma specimen [facility] DEPARTMENT OF PATHOLOGY AND [address] [address] Anti Xa, unfractionated (09/09/2017 9:43 AM) Component Value Ref Range Anti Xa, unfractionated <0.10 (L)Comment: Therapeutic Range: 0.30 - 0.70 U /mL 0.30 - 0.70 U/mL Specimen Performing Laboratory Blood [facility] PATHOLOGY [address] [address] Uric acid level (09/09/2017 4:00 AM) Component Value Ref Range Uric acid 2.6 (L) 3.4 - 7.0 mg/dL Specimen Performing Laboratory Plasma specimen [facility] PATHOLOGY [address] [address] Thyroid stimulating hormone (09/09/2017 4:00 AM) Component Value Ref Range TSH 2.38 0.27 - 4.20 uIU/mL Specimen Performing Laboratory Plasma specimen [facility] DEPARTMENT PATHOLOGY [address] [address] T4, free (09/09/2017 4:00 AM) Component Value Ref Range T4, free 1.3 0.9 - 1.7 ng/dL Specimen Performing Laboratory Plasma specimen [facility] DEPARTMENT PATHOLOGY [address] [address] LDH (09/09/2017 4:00 AM) Component Value Ref Range LDH 284 (H) 87 - 225 U/L Specimen Performing Laboratory Plasma specimen [facility] DEPARTMENT PATHOLOGY [address] [address] Vitamin D 25 hydroxy level (09/09/2017 3:10 AM) Component Value Ref Range Vitamin D, 25-hydroxy 37.2 30.0 - 150.0 ng/mL Comment: This assay reports the sum of 25-hydroxy vitamin D3 and 25-hydroxy vitamin D2. Reference range: 0-17 years: Deficiency: less than 20ng/mL Optimum level: greater than or equal to 20 ng/mL. 18 years and older: Deficiency: less than 20ng/mL Insufficiency: 20-29 ng/mL Optimum Level: 30-80 ng/mL The assay reportable range is 3.4155.9 ng/mL. Levels higher than 150 ng/mL may be associated with toxicity. If toxicity is clinically suspected and the reported result is >155.9 ng/mL,contact lab for alternative methods to obtain a definitivelevel. If separate quantitation of 25-hydroxy vitamin D3 and 25-hydroxy vitamin D2 is needed, please contact lab for alternative methods. Specimen Performing Laboratory Blood [facility] DEPARTMENT OF PATHOLOGY AND [facility] [address] [place] [address] Parathyroid hormone (09/09/2017 3:00 AM) Component Value Ref Range PTH 120 (H) 15 - 65 pg/mL Specimen Performing Laboratory Blood [facility] DEPARTMENT OF PATHOLOGY AND [facility] [address] [place] [address] Echocardiogram complete w contrast and 3D if needed (09/08/2017 1:51 PM) Specimen Performing Laboratory [facility] [address] [place] [address] Narrative Echocardiography Report [address] [place] [address].Name:Zack ROWLEY.ID:[id number] .Date: 09/08/2017 Refer.MD:SHAHRAM DECKER MD Exam Time: 1:20:00 PMStudy Type:Routine Echo Height:62.99in Weight:144lb BSA: 1.68 m2 DOBAge:1930,87Y Sex: MALEBP:109/63 Sonogrphr: Dustin Dean, MONIQUE, RDJAYDON, JIM Pat. Stat.:Inpatient Room:F044Cydxl Status:Final Echo Event ID:[id number] Order ID:[id number] Reason for Study:Chest pain-acute with suspected [place] and non-diagnostic ECG Procedures:2D Echo, Colorflow Doppler Race:B SUMMARY: LV systolic function is normal. LA volume is severely enlarged. LV filling pressure is normal. Estimated PA systolic pressure is 50 mmHg, assuming a mean RAP of 5 mmHg. Consider acute PE as cause of PHT. FINDINGS: LV: LV size is normal. LV systolic function is normal. Overall wallmotion is normal. Estimated EF is 55-59%. RV: RV size is normal. RV systolic function is normal. LA: LA volume is severely enlarged. RA: RA volume is severely enlarged. AO: Aortic root diameter is normal. JOSE MANUEL: No pericardial effusion. AV: No structural AV abnormalities noted. MV: No structural MV abnormalities noted. Mild mitral regurgitation. PV: No structural PV abnormalities noted. TV: No structural TV abnormalities noted. Mild tricuspid regurgitation Gonzales: LV filling pressure is normal. Other:Estimated PA systolic pressure is 50 mmHg, assuming a mean RAPof 5 mmHg. MEASUREMENTS: 2D Parasternal Long [place] LVOT 2 cmAo An2.1 cm LVIDd3.9 cmIndex 2.3 cm/m Ao Rtd 3.5 cm Index2.1 cm/m LVIDs2.6 cm LV Mass 75.1 g(122-174) LV%fs 33.3 % LVM Index 44.7 g/m2 IVSd 0.8 cmRWT0.3 LVPWd0.6 cm LA Sng Plane LA Area 29.8 cm2(8.8-23.4) LA Vol 98 ml Index58.3 ml/m LA LngAx 7.4 cm RA Sng Plane RA Area 31.8 cm2(8.3-19.5) RA Vol 110.5 ml Index65.8 ml/m RA LngAx 7.7 cm Signed 09/08/2017 05:04 PM Olivier Kaba M.D. Procedure Note Interface, Radiology Results In - 09/08/2017 5:05 PM CDT Echocardiography Report [address] [place] [address] Pat.Name: HAROLDO ROWLEY [facility].ID: [id number] .Date: 09/08/2017 Refer.MD: SHAHRAM DECKER MD Exam Time: 1:20:00 PM Study Type:Routine Echo Height: 62.99in Weight: 144lb BSA: 1.68 m2 Age: 7 1930,87Y Sex: MALE BP: 109/63 Sonogrphr: MONIQUE Ibarra, JIM HERNANDEZ. Stat.:Inpatient Room: [facility] Status:Final Echo Event ID:[id number] Order ID: [id number] Reason for Study:Chest pain-acute with suspected [place] and non-diagnostic ECG Procedures:2D Echo, Colorflow Doppler Race: B SUMMARY: LV systolic function is normal. LA volume is severely enlarged. LV filling pressure is normal. Estimated PA systolic pressure is 50 mmHg, assuming a mean RAP of 5 mmHg. Consider acute PE as cause of PHT. FINDINGS: LV: LV size is normal. LV systolic function is normal. Overall wall motion is normal. Estimated EF is 55-59%. RV: RV size is normal. RV systolic function is normal. LA: LA volume is severely enlarged. RA: RA volume is severely enlarged. AO: Aortic root diameter is normal. JOSE MANUEL: No pericardial effusion. AV: No structural AV abnormalities noted. MV: No structural MV abnormalities noted. Mild mitral regurgitation. PV: No structural PV abnormalities noted. TV: No structural TV abnormalities noted. Mild tricuspid regurgitation Gonzales: LV filling pressure is normal. Other: Estimated PA systolic pressure is 50 mmHg, assuming a mean RAP of 5 mmHg. MEASUREMENTS: 2D Parasternal [place] LVOT 2 cm Ao An 2.1 cm LVIDd 3.9 cm Index 2.3 cm/m Ao Rtd 3.5 cm Index 2.1 cm/m LVIDs 2.6 cm LV Mass 75.1 g (122-174) LV%fs 33.3 % LVM Index 44.7 g/m2 IVSd 0.8 cm RWT 0.3 LVPWd 0.6 cm LA Sng Plane LA Area 29.8 cm2 (8.8-23.4) LA Vol 98 ml Index 58.3 ml/m LA LngAx 7.4 cm RA Sng Plane RA Area 31.8 cm2 (8.3-19.5) RA Vol 110.5 ml Index 65.8 ml/m RA LngAx 7.7 cm Signed 09/08/2017 05:04 PM Olivier Kaba M.D. ECG 12 lead (09/08/2017 9:14 AM)Only the most recent of2 resultswithin the time period is included. Component Value Ref Range Ventricular rate 74 Atrial rate 394 QRSD interval 82 QT interval 386 QTC interval 428 QRS axis 1 60 T wave axis -78 EKG impression Ventricular-paced rhythm-Abnormal ECG-In automated comparison with ECG of 07-SEP-2017 19:35,-fusion complexes are no longer present-premature ventricular complexes are no longer present-Vent. rate has increased BY 5 BPM- Specimen Performing Laboratory [facility] [address] [facility] [place] [address] XR Chest 1 Vw Portable (09/08/2017 7:00 AM)Only the most recent of2 resultswithin the time period is included. Specimen Performing Laboratory [facility] [address] [place] [address] Narrative EXAMINATION:XR CHEST 1 VW PORTABLE CLINICAL HISTORY:Pre-Op COMPARISON:Most Recent IMPRESSION: Heart and mediastinum are stable. Left-sided pacing device again noted. Mild pulmonary vascular congestion without new infiltrates. [facility]-[id number] Procedure Note Interface, Radiology Results Incoming - 09/08/2017 7:24 AM CDT EXAMINATION: XR CHEST 1 VW PORTABLE CLINICAL HISTORY: Pre-Op COMPARISON: Most Recent IMPRESSION: Heart and mediastinum are stable. Left-sided pacing device again noted. Mild pulmonary vascular congestion without new infiltrates. [facility]-[id number] Hepatic function panel (09/07/2017 9:00 PM) Component Value Ref Range Albumin 3.7 3.5 - 5.0 g/dL Total bilirubin 0.6 0.0 - 1.2 mg/dL Bilirubin direct SEE COMMENTComment: Footnote--------- 0.0 - 0.3 mg/dL Alkaline phosphatase SEE COMMENTComment: Footnote--------- 40 - 129 U/L Protein 8.6 (H) 6.3 - 8.3 g/dL Comment: [place] 4.6-7.0 g/dL 1 week 4.4-7.6 g/dL 7 months-1year5.1-7.3 g/dL 1-2 years5.6-7.5 g/dL >3 years6.0-8.0 g/dL 18-150 6.3-8.3 g/dL ALT SEE COMMENTComment: Footnote--------- 5 - 50 U/L AST SEE COMMENTComment: Footnote--------- 10 - 50 U/L Specimen Performing Laboratory Plasma specimen [facility] DEPARTMENT OF PATHOLOGY AND GENOMIC MEDICINE [address] [place] [address] Lipid panel (09/07/2017 9:00 PM) Component Value Ref Range Cholesterol 191 <200 mg/dL Triglycerides 138 <150 mg/dL HDL cholesterol 76 >40 mg/dL LDL cholesterol 108 (H)Comment: Result obtained by direct <100 mg/dL LDL measurement Lipid panel interpretation SeeBelow Comment: Total Cholesterol (mg/dL) <200 Desirable 792-314Jhnmtqsfbs-tens >=240High Triglycerides (mg/dL) <150 Normal 560-134Grbtdueuyw-qvww 200-499High >=500Very high HDL Cholesterol (mg/dL) <40Low (male) <40Low (female) LDL Cholesterol (mg/dL) <100 Optimal 100-129Near or above optimal 348-307Lmnhfnngcb-rzeg 160-189High >=190Very high Risk Catergories that modify LDL goals. Risk CatergoriesLDL goal (mg/dL) CHD and CHD risk equivalent<100 (10-year risk >20%) Multiple (2+) risk factors <130 (10-year risk=<20%) 0-1 risk factors <160 (<10-year risk) Defining levels of lipids in metabolic syndrome Triglycerides>=150 mg/dL HDL Cholesterol Men<40 mg/dL Women<40 mg/dL Non-HDL cholesterol is a second target for therapy in persons with high triglycerides (>=200 mg/dL) Specimen Performing Laboratory Plasma specimen [facility] DEPARTMENT OF PATHOLOGY AND GENOMIC MEDICINE [address] [place] [address] Smear review (09/07/2017 8:50 PM) Component Value Ref Range Smear review Smear Reviewed Specimen Performing Laboratory [facility] DEPARTMENT OF PATHOLOGY AND GENOMIC MEDICINE [address] [place] [address] Narrative Unable to perform testing, specimen is HEMOLYZED. Recollect requested for K, AST, ALT, ALP, BILID (tests).TONNY WHITINGOM/D9E notified by [email or web address] at121:39. CBC hemogram (09/07/2017 8:50 PM) Component Value Ref Range WBC 6.19 4.50 - 11.00 k/uL RBC 6.34 (H) 4.40 - 6.00 m/uL HGB 14.4 14.0 - 18.0 g/dL HCT 48.3 41.0 - 51.0 % MCV 76.2 (L) 82.0 - 100.0 fL MCH 22.7 (L) 27.0 - 34.0 pg MCHC 29.8 (L) 31.0 - 37.0 g/dL RDW - SD 48.9 37.0 - 55.0 fL MPV SEE COMMENTComment: No report 8.8 - 13.2 fL Platelet count 75 (L)Comment: Platelet aggregates present. 150 - 400 k/uL Nucleated RBC 0.00 /100 WBC Specimen Performing Laboratory [facility] DEPARTMENT OF PATHOLOGY AND GENOMIC MEDICINE [address] [place] [address] Narrative Unable to perform testing, specimen is HEMOLYZED. Recollect requested for K, AST, ALT, ALP, BILID (tests).TONNY MARIE/D9E notified by [email or web address] at121:39. Pv ankle brachial index complete (09/07/2017 2:00 PM)Only the most recent of2 resultswithin the time period is included. Specimen [facility] [address] [place] [address] Narrative PERIPHERAL VASCULAR LABORATORY Lower Extremity Arterial Physiologic Report [address] [place], [place] [facility].Name:Zack ROWLYE.ID:[id number] .Date: 09/07/2017Refer.MD:ESTEFANIA DESAI MD Exam Time: 1:30:00 PMStudy Type:Physiologic Leg DOBAge:1930,87YSex: MALE Sonogrphr: Paula Coello RVSPat. Stat.:Outpatient CPT - 4: 547[address] Echo Event ID:[id number] Order ID:[id number] Reason for Study:Bilateral lower extremity pain, [employer] Research Trial #[id number], right leg treated. Procedures:12/16/2011ngioplasty of the left anterior tibial artery, 11/16/2013left femoral to popliteal artery bypass graft (ipsilat reversed saphenous vein), 10/18/2014 angioplasty of the right peroneal artery and left anterior tibial artery, 12/23/2015 angioplasty of the proximal anastomosis of the left SFA to popliteal artery bypass Race:B SUMMARY: DOPPLER SIGNALS /ANALOG WAVEFORMS: ANALOG WAVEFORMS ARTERY RIGHT LEFT Posterior Tibial Absent Absent Dorsalis Pedis Absent Abnormal Please see same day lower extremity arterial duplex PHYSICIAN INTERPRETATION: 1.Unable to obtain the right resting ankle brachial indices due to absent Doppler signals of the posterior tibial and dorsalis pedis arteries. 2.Resting ankle brachial indices suggest moderate left lower extremity arterial occlusive disease. 3.Toe brachial indices are absent, bilaterally. 4.Since previous exam on 08/22/2017, KAREN's and TBI's have declined. MEASUREMENTS: PRESSURES Right Brachial Brach P102 mmHg Left Brachial Brach P113 mmHg Right Ankle PT AnklePT P0 mmHg Left Ankle PT AnklePT P0 mmHg Right Ankle DP AnkleDP P0 mmHg Left Ankle DP AnkleDP P 69 mmHg Left Great Toe GreatToe P 0 mmHg Left KAREN DP KAREN DP0.61 Signed 09/07/2017 04:52 PM Phillip Regalado MD, RPVI Procedure Note Interface, Radiology Results In - 09/07/2017 4:52 PM CDT PER[facility]ASCULAR LABORATORY Lower Extremity Arterial Physiologic Report [address] [place] [address] Pat.Name: HAROLDO ROWLEY Pat.ID: [id number] .Date: 09/07/2017 Refer.MD: ESTEFANIA DEASI MD Exam Time: 1:30:00 PM Study Type:Physiologic Leg Age: 7 1930,87Y Sex: MALE Sonogrphr: JOHAN Mcmahon Pat. Stat.:Outpatient CPT - 4: 81062 Echo Event ID:[id number] Order ID: [id number] Reason for Study:Bilateral lower extremity pain, [employer] Research Trial #[id number], right leg treated. Procedures:12/16/2011 angioplasty of the left anterior tibial artery, 11/16/2013 left femoral to popliteal artery bypass graft (ipsilat reversed saphenous vein), 10/18/2014 angioplasty of the right peroneal artery and left anterior tibial artery, 12/23/2015 angioplasty of the proximal anastomosis of the left SFA to popliteal artery bypass Race: B SUMMARY: DOPPLER SIGNALS / ANALOG WAVEFORMS: ANALOG WAVEFORMS ARTERY RIGHT LEFT Posterior Tibial Absent Absent Dorsalis Pedis Absent Abnormal Please see same day lower extremity arterial duplex PHYSICIAN INTERPRETATION: 1. Unable to obtain the right resting ankle brachial indices due to absent Doppler signals of the posterior tibial and dorsalis pedis arteries. 2. Resting ankle brachial indices suggest moderate left lower extremity arterial occlusive disease. 3. Toe brachial indices are absent, bilaterally. 4. Since previous exam on 08/22/2017, KAREN's and TBI's have declined. MEASUREMENTS: PRESSURES Right Brachial Brach P 102 mmHg Left Brachial Brach P 113 mmHg Right Ankle PT AnklePT P 0 mmHg Left Ankle PT AnklePT P 0 mmHg Right Ankle DP AnkleDP P 0 mmHg Left Ankle DP AnkleDP P 69 mmHg Left Great Toe GreatToe P 0 mmHg Left KAREN DP KAREN DP 0.61 Signed 09/07/2017 04:52 PM Phillip Regalado MD, RPVI PV physiologic arterial lower extremity complete w karen (08/22/2017 9:34 AM) Specimen Performing Laboratory [facility] [address] [place] [address] Narrative PERIPHERAL VASCULAR LABORATORY Lower Extremity Arterial Physiologic Report [address] [place], [place] Pat.Name:Zack ROWLEY.ID:[id number] .Date: 08/22/2017 Refer.MD:ESTEFANIA DESAI MD Exam Time: 9:13:00 AMStudy Type:Physiologic Leg DOBAge:1930,87YSex: MALE Sonogrphr: TIANNA MiltonapeVol: KF, CPT - 4: 32346 Echo Event ID:[id number] Order ID:[id number] Reason for Study:[facility] Research Trial #[id number], right leg treated. Procedures:12/16/2011ngioplasty of the left anterior tibial artery, 11/16/2013left femoral to popliteal artery bypass graft (ipsilat reversed saphenous vein), 10/18/2014 angioplasty of the right peroneal artery and left anterior tibial artery, 12/23/2015 angioplasty of the proximal anastomosis of the left SFA to popliteal artery bypass Race:B SUMMARY: DOPPLER SIGNALS /ANALOG WAVEFORMS: ANALOG WAVEFORMS ARTERY RIGHT LEFT Posterior Tibial Absent Absent Dorsalis Pedis Abnormal Abnormal Patient seen in clinic today by Dr. Desai. PHYSICIAN INTERPRETATION: 1.Resting ankle brachial indices suggest severe lower extremity arterial occlusive disease on the right and moderate lower extremity arterial occlusive disease on the left. 2.Toe brachial indices are absent on the right and suggests severe disease on the left. 3.Since previous exam on 04/04/2017, the right KAREN's and TBI's have declined and the left KAREN's have remained stable; however, the TBI's have declined. MEASUREMENTS: PRESSURES Right Brachial Brach P 99 mmHg Left Brachial Brach P100 mmHg Right Ankle PT AnklePT P0 mmHg Left Ankle PT AnklePT P 55 mmHg Right Ankle DP AnkleDP P 35 mmHg Left Ankle DP AnkleDP P 58 mmHg Right Great Toe GreatToe P 0 mmHg Left Great Toe GreatToe P20 mmHg Right KAREN PT KAREN PT 0 Left KAREN PT KAREN PT0.55 Right KAREN DP KAREN DP0.35 Left KAREN DP KAREN DP0.58 Right TBI TBI0 Left TBI TBI0.2 Signed 08/22/2017 10:51 AM Phillip Regalado MD, RPVI Procedure Note Interface, Radiology Results In - 08/22/2017 10:52 AM CDT PER[facility]ASC[facility] LABORATORY Lower Extremity Arterial Physiologic Report [address] [place] [address] Pat.Name: HAROLDO ROWLEY Pat.ID: [id number] .Date: 08/22/2017 Refer.MD: ESTEFANIA DSEAI MD Exam Time: 9:13:00 AM Study Type:Physiologic Leg Age: 7 1930,87Y Sex: MALE Sonogrphr: Cordelia Nieto RVT Tape Vol: KF, CPT - 4: 01952 Echo Event ID:[id number] Order ID: [id number] Reason for Study:[employer] Research Trial #[id number], right leg treated. Procedures:12/16/2011 angioplasty of the left anterior tibial artery, 11/16/2013 left femoral to popliteal artery bypass graft (ipsilat reversed saphenous vein), 10/18/2014 angioplasty of the right peroneal artery and left anterior tibial artery, 12/23/2015 angioplasty of the proximal anastomosis of the left SFA to popliteal artery bypass Race: B SUMMARY: DOPPLER SIGNALS / ANALOG WAVEFORMS: ANALOG WAVEFORMS ARTERY RIGHT LEFT Posterior Tibial Absent Absent Dorsalis Pedis Abnormal Abnormal Patient seen in clinic today by Dr. Desai. PHYSICIAN INTERPRETATION: 1. Resting ankle brachial indices suggest severe lower extremity arterial occlusive disease on the right and moderate lower extremity arterial occlusive disease on the left. 2. Toe brachial indices are absent on the right and suggests severe disease on the left. 3. Since previous exam on 04/04/2017, the right KAREN's and TBI's have declined and the left KAREN's have remained stable; however, the TBI's have declined. MEASUREMENTS: PRESSURES Right Brachial Brach P 99 mmHg Left Brachial Brach P 100 mmHg Right Ankle PT AnklePT P 0 mmHg Left Ankle PT AnklePT P 55 mmHg Right Ankle DP AnkleDP P 35 mmHg Left Ankle DP AnkleDP P 58 mmHg Right Great Toe GreatToe P 0 mmHg Left Great Toe GreatToe P 20 mmHg Right KAREN PT KAREN PT 0 Left KAREN PT KAREN PT 0.55 Right KAREN DP KAREN DP 0.35 Left KAREN DP KAREN DP 0.58 Right TBI TBI 0 Left TBI TBI 0.2 Signed 08/22/2017 10:51 AM Phillip Regalado MD, RPVI after 02/15/2017 Insurance Payer Benefit Plan / Group Subscriber ID Type Phone Address MEDICARE MEDICARE PART A AND B xxxxxxxxxx Medicare [place], [place] MEDICAID MEDICAID xxxxxxxxx Medicaid [facility]CIAL [facility] COMMERCIAL xxxxxxxxxx Commercial Home: [id number] [place] [phone] [address]
--- NOTE | 2018-02-16 20:16 | RAD REPORT ---
EXAM DESCRIPTION: RAD - Chest Single View - 02/16/2018 7:51 pm CLINICAL HISTORY: Cough and congestion COMPARISON: February 22, 2017 TECHNIQUE: AP portable chest image was obtained 1948 hours . FINDINGS: Lung volumes are low. This accentuates the baseline diffuse interstitial pattern. In this setting, interstitial edema or infiltrate can be easily masked. Cardiomegaly is noted. Heart size is also accentuated by shallow inspiration. Heart is similar to minimally increased over the prior study . Pacemaker is in place. No measurable pleural effusion and no pneumothorax. No gross bony abnormalit y seen. No acute aortic findings suspected. IMPRESSION: Chronic interstitial lung disease accentuated by shallow inspiration. Cardiomegaly is present also accentuated by shallow inspiration. Early failure or, volume overload or interstitial infiltrate can be masked in this setting.
[2018-02-16] MEDS ORDERED: FUROSEMIDE 40 MG/4 ML VIAL ONE (21:38)
[2018-02-16 23:18] LABS: Absolute Lymphocytes (CBC) 1.6 K/uL (0.7-4.9); Absolute Monocytes 0.5 K/uL (0.1-1.3); Absolute Neutrophil 4.7 K/uL (1.8-8.0); Basophils % 0.7 % (0-1.3); Eosinophils % 0.6 % (0-4.4); Hematocrit 41.9 % (39.6-49.0); MCH 21.6 pg (27.0-35.0); MCV 70.5 fL (80-100); Monocytes % 6.9 % (3.3-12.3); RBC Red Blood Cell Count 5.94 M/uL (4.33-5.43)
[2018-02-16 23:19] LABS: Protime INR 1.46
[2018-02-16 23:23] LABS: Potassium 3.9 mEq/L (3.6-5.0)
[2018-02-16 23:45] LABS: Urine White Blood Cell Casts OK
[2018-02-16 23:46] LABS: Blood Morphology Comment NOTED (NOT SEEN); Hypochromasia 2+; Ovalocytes 3+; Platelet Estimate ADEQ; Target Cells 3+
[2018-02-17 00:04] LABS: Urine Glucose NEGATIVE (NEG); Urine Specific Gravity 1.015 (1.005-1.030)
[2018-02-17 00:05] LABS: Urine Blood TRACE (NEG); Urine Protein NEGATIVE (NEG); Urine pH 5.5 (5.0-7.0)
--- NOTE | 2018-02-17 00:44 | EDPHYS ---
Physician Documentation [facility] Name: Haroldo Rowley Age: 87 yrs Sex: Male : 1930 Arrival Date: 02/16/2018 Time: 17:10 Bed 28 Private MD: Saad Burnham K ED Physician Rudy Humphreys HPI: 02/17 00:34 This 87 yrs old Male presents to ER via Ambulatory with complaints of Volume gs overload. 00:34 The patient has shortness of breath at rest. Onset: The symptoms/episode began/occurred gs 2 day(s) ago, and became worse and became persistent. Duration: The symptoms are continuous. The patient's shortness of breath is aggravated by exertion. Associated signs and symptoms: Pertinent negatives: chest pain. Severity of symptoms: At their worst the symptoms were moderate in the emergency department the symptoms are unchanged. The patient has experienced similar episodes in the past, a few times. The patient has been recently seen by a physician: Dr. burnham. Historical: - Allergies: 02/16 17:15 No Known Allergies; hj - PMHx: 17:15 COPD; GERD; Sleep Apnea; PA; hj - PSHx: 17:15 pacemaker; hj - Social history:: The patient lives at home. ROS: 02/17 00:34 All other systems are negative. gs Exam: 00:34 Head/Face: Normocephalic, atraumatic. Eyes: Pupils equal round and reactive to light, gs extra-ocular motions intact. Lids and lashes normal. Conjunctiva and sclera are non-icteric and not injected. Cornea within normal limits. Periorbital areas with no swelling, redness, or edema. ENT: Nares patent. No nasal discharge, no septal abnormalities noted. Tympanic membranes are normal and external auditory canals are clear. Oropharynx with no redness, swelling, or masses, exudates, or evidence of obstruction, uvula midline. Mucous membranes moist. Neck: Trachea midline, no thyromegaly or masses palpated, and no cervical lymphadenopathy. Supple, full range of motion without nuchal rigidity, or vertebral point tenderness. No Meningismus. Chest/axilla: Normal chest wall appearance and motion. Nontender with no deformity. No lesions are appreciated. Abdomen/GI: Soft, non-tender, with normal bowel sounds. No distension or tympany. No guarding or rebound. No evidence of tenderness throughout. Back: No spinal tenderness. No costovertebral tenderness. Full range of motion. Skin: Warm, dry with normal turgor. Normal color with no rashes, no lesions, and no evidence of cellulitis. MS/ Extremity: Pulses equal, no cyanosis. Neurovascular intact. Full, normal range of motion. Neuro: Awake and alert, GCS 15, oriented to person, place, time, and situation. Cranial nerves II-XII grossly intact. Motor strength 5/5 in all extremities. Sensory grossly intact. Cerebellar exam normal. Normal gait. 00:34 Constitutional: The patient appears alert, awake. 00:34 Cardiovascular: Rate: normal, Rhythm: irregularly irregular, Pulses: no pulse deficits are appreciated, Edema: 2+ edema to level of left midcalf and right midcalf. 00:34 ECG was reviewed by the Attending Physician. 00:34 Respiratory: the patient does not display signs of respiratory distress, Respirations: normal, Breath sounds: rales, that are mild, are located in both bases. Vital Signs: 02/16 17:16 BP 104 / 87; Pulse 90; Resp 20; Temp 98.4(O); Pulse Ox 93% on R/A; Weight 73.48 kg; hj Height 5 ft. 5 in. (165.10 cm); Pain 0/10; 18:59 BP 120 / 74; Pulse 79; Resp 18; Pulse Ox 96% ; kb1 21:16 BP 141 / 88; Pulse 80; Resp 18; Pulse Ox 97% ; kb1 22:16 BP 128 / 98; Pulse 91; Resp 20; Pulse Ox 98% ; kb1 23:21 BP 136 / 92; Pulse 83; Resp 20; Pulse Ox 96% ; kb1 02/17 00:27 BP 148 / 91; Pulse 82; Resp 20; Pulse Ox 96% ; kb1 01:44 BP 130 / 90; Pulse 96; Resp 18; Pulse Ox 96% ; kb1 02:38 BP 128 / 85; Pulse 84; Resp 20; Pulse Ox 97% ; kb1 02/16 17:16 Body Mass Index 26.96 (73.48 kg, 165.10 cm) MDM: 02/16 19:28 Patient medically screened. 02/17 00:34 Differential diagnosis: CHF exacerbation, Chronic Obstructive Pulmonary Disease gs Myocardial Infarction pneumonia. Data reviewed: vital signs, nurses notes. 02/16 19:28 Order name: Basic Metabolic Panel 02/16 19:28 Order name: BNP 02/16 19:28 Order name: CBC with Diff 02/16 19:28 Order name: PT-INR 02/16 19:28 Order name: Troponin (emerg Dept Use Only) 02/16 22:46 Order name: Urine Dipstick--Ancillary (enter results) rg2 02/16 19:28 Order name: XRAY Chest (1 view) 02/16 23:21 Order name: Protime (+INR); Complete Time: 23:42 EDMS 02/16 23:22 Order name: CBC with Automated Diff; Complete Time: 00:45 EDMS 02/16 23:23 Order name: Basic Metabolic Panel; Complete Time: 23:42 EDMS 02/16 23:32 Order name: Troponin (Emerg Dept Use Only); Complete Time: 23:42 EDMS 02/16 23:35 Order name: BNP B-Type Natriuretic Peptide; Complete Time: 23:42 EDMS 02/16 23:46 Order name: CBC Smear Scan; Complete Time: 00:45 EDMS 02/17 00:05 Order name: Urine Dipstick-Ancillary; Complete Time: 00:45 EDMS 02/16 19:28 Order name: EKG; Complete Time: 19:28 02/16 19:28 Order name: Cardiac monitoring; Complete Time: 22:45 02/16 19:28 Order name: EKG - Nurse/Tech; Complete Time: 21:03 02/16 19:28 Order name: IV Saline Lock; Complete Time: 21:14 02/16 19:28 Order name: Labs collected and sent; Complete Time: 22:45 02/16 19:28 Order name: O2 Per Protocol; Complete Time: 21:03 02/16 19:28 Order name: O2 Sat Monitoring; Complete Time: 21:04 02/16 19:28 Order name: Urine Dipstick-Ancillary (obtain specimen); Complete Time: 22:45 02/16 20:16 Order name: RAD; Complete Time: 20:40 EDMS EC:34 Rate is 83 beats/min. Rhythm is irregularly irregular, A fib. T waves are Flattened. gs Clinical impression: Abnormal EKG without significant change. Interpreted by me. Administered Medications: 02/16 21:41 Drug: Lasix 40 mg Route: IVP; Site: left hand; kb1 22:44 Follow up: Response: No adverse reaction kb1 02/17 01:43 Drug: Aspirin Chewable Tablet 324 mg Route: PO; kb1 02:45 Follow up: Response: No adverse reaction kb1 Disposition: 00:34 Critical Care:. gs Disposition: 02/17/18 00:44 Hospitalization ordered by Romeo Ahuja for Inpatient Admission. Preliminary diagnosis is Acute combined systolic (congestive) and diastolic (congestive) heart failure. - Bed requested for Telemetry/MedSurg (Inpatient). - Status is Inpatient Admission. kb1 - Condition is Stable. - Problem is an acute exacerbation. - Symptoms have improved. UTI on Admission? No Critical care time excluding procedures: 00:34 Critical care time: Bedside Care: 10 minutes, Consultation: 10 minutes, Family gs Intervention: 10 minutes. Total time: 30 minutes Signatures: Dispatcher [employer] EDColleen Mac RN RN kl Joaquin, Henry, RN RN hj Starr, Gregory, MD MD gs Brown, Kristina, RN RN kb1
--- NOTE | 2018-02-17 00:44 | ER ---
Nurse's Notes [facility] Name: Haroldo Rowley Age: 87 yrs Sex: Male : 1930 Arrival Date: 02/16/2018 Time: 17:10 Bed 28 Private MD: Saad Burnham K Diagnosis: Acute combined systolic (congestive) and diastolic (congestive) heart failure Presentation: 02/16 17:12 Presenting complaint: Friend states: i went to my lung MD and was told i have fluid hj overload and was advise to go to the ER; denies chest pain; reports SOB; denies fever and chills;. Transition of care: patient was not received from another setting of care. Onset of symptoms was February 16, 2018. Care prior to arrival: None. 17:12 Method Of Arrival: Ambulatory hj 17:12 Acuity: NAN 3 hj Triage Assessment: 17:15 General: Appears in no apparent distress. uncomfortable, Behavior is calm, cooperative, hj appropriate for age. Pain: Denies pain. Historical: - Allergies: 17:15 No Known Allergies; hj - PMHx: 17:15 COPD; GERD; Sleep Apnea; ND; hj - PSHx: 17:15 pacemaker; hj - Social history:: The patient lives at home. Screenin:59 Abuse screen: Denies threats or abuse. Nutritional screening: No deficits noted. kb1 Tuberculosis screening: No symptoms or risk factors identified. Fall Risk None identified. Assessment: 18:54 General: Appears in no apparent distress. Behavior is calm, cooperative. Pain: Denies kb1 pain. Neuro: Level of Consciousness is awake, alert, obeys commands, Oriented to person, place, time, situation. Cardiovascular: Patient's skin is warm and dry. Respiratory: Airway is patent Respiratory effort is even, unlabored, Respiratory pattern is regular, symmetrical. GI: No signs and/or symptoms were reported involving the gastrointestinal system. : No signs and/or symptoms were reported regarding the genitourinary system. 21:16 Reassessment: Patient appears in no apparent distress at this time. Patient and/or kb1 family updated on plan of care and expected duration. Pain level reassessed. Patient is alert, oriented x 3, equal unlabored respirations, skin warm/dry/pink. 22:15 Reassessment: Patient appears in no apparent distress at this time. Patient and/or kb1 family updated on plan of care and expected duration. Pain level reassessed. Patient is alert, oriented x 3, equal unlabored respirations, skin warm/dry/pink. unable to obtain blood. Multiple attempts by three staff members. Dr. Humphreys notified. 23:21 Reassessment: Patient appears in no apparent distress at this time. Patient and/or kb1 family updated on plan of care and expected duration. Pain level reassessed. Patient is alert, oriented x 3, equal unlabored respirations, skin warm/dry/pink. 02/17 00:27 Reassessment: Patient appears in no apparent distress at this time. Patient and/or kb1 family updated on plan of care and expected duration. Pain level reassessed. Patient is alert, oriented x 3, equal unlabored respirations, skin warm/dry/pink. 01:43 Reassessment: Patient appears in no apparent distress at this time. Patient and/or kb1 family updated on plan of care and expected duration. Pain level reassessed. Patient is alert, oriented x 3, equal unlabored respirations, skin warm/dry/pink. notified awaiting bed assignment for admission. 02:38 Reassessment: Patient appears in no apparent distress at this time. Patient is alert, kb1 oriented x 3, equal unlabored respirations, skin warm/dry/pink. Resting with eyes closed. Vital Signs: 02/16 17:16 BP 104 / 87; Pulse 90; Resp 20; Temp 98.4(O); Pulse Ox 93% on R/A; Weight 73.48 kg; hj Height 5 ft. 5 in. (165.10 cm); Pain 0/10; 18:59 BP 120 / 74; Pulse 79; Resp 18; Pulse Ox 96% ; kb1 21:16 BP 141 / 88; Pulse 80; Resp 18; Pulse Ox 97% ; kb1 22:16 BP 128 / 98; Pulse 91; Resp 20; Pulse Ox 98% ; kb1 23:21 BP 136 / 92; Pulse 83; Resp 20; Pulse Ox 96% ; kb1 02/17 00:27 BP 148 / 91; Pulse 82; Resp 20; Pulse Ox 96% ; kb1 01:44 BP 130 / 90; Pulse 96; Resp 18; Pulse Ox 96% ; kb1 02:38 BP 128 / 85; Pulse 84; Resp 20; Pulse Ox 97% ; kb1 02/16 17:16 Body Mass Index 26.96 (73.48 kg, 165.10 cm) ED Course: 02/16 17:10 Patient arrived in ED. mr 17:10 Saad Burnham MD is Private Physician. mr 17:14 Triage completed. hj 17:16 Arm band placed on right wrist. hj 18:41 Opal Victoria, RN is Primary Nurse. kb1 18:59 Patient has correct armband on for positive identification. Bed in low position. Call kb1 light in reach. Side rails up X2. communications designer on. Pulse ox on. NIBP on. 18:59 No provider procedures requiring assistance completed. kb1 19:09 Rudy Humphreys MD is Attending Physician. gs 19:50 X-ray completed. Portable x-ray completed in exam room. Patient tolerated procedure kc2 well. 21:16 Inserted saline lock: 22 gauge in left hand, using aseptic technique. kb1 02/17 00:43 Romeo Ahuja MD is Hospitalizing Provider. gs 02:55 Patient admitted, IV remains in place. kb1 Administered Medications: 02/16 21:41 Drug: Lasix 40 mg Route: IVP; Site: left hand; kb1 22:44 Follow up: Response: No adverse reaction kb1 02/17 01:43 Drug: Aspirin Chewable Tablet 324 mg Route: PO; kb1 02:45 Follow up: Response: No adverse reaction kb1 Output: 02/16 22:45 Urine: 200ml (Voided); Total: 200ml. kb1 02/17 00:04 Urine: 700ml (Voided); Total: 900ml. kb1 Outcome: 00:44 Decision to Hospitalize by Provider. gs 01:45 Instructed on the need for admit. kb1 02:55 Admitted to Tele accompanied by tech, via wheelchair, room 224, Report called to Maday gilman RN 02:55 Condition: stable 03:09 Patient left the ED. kb1 Signatures: Leanna Roman mr JamesonBogdan, RN RN Nancy Hester kc2 Rudy Humphreys MD MD Opal Victoria RN RN kb1 Corrections: (The following items were deleted from the chart) 02:55 02/16 16:15 Response: Pain is decreased kb1 kb1 02/17 02:55 02/16 16:15 Response: Pain is decreased kb1 kb1
[2018-02-17] MEDS ORDERED: ALBUTEROL 2.5 MG/3 ML NEB SOL NEB PRN (00:48)
[2018-02-17] MEDS ORDERED: IPRATROPIUM BROM 0.5MG/2.5ML NEB PRN (00:48)
[2018-02-17] MEDS ORDERED: ACETAMINOPHEN 500 MG TAB PO PRN (00:48)
[2018-02-17] MEDS ORDERED: ASPIRIN 81 MG CHEWABLE TABLET ONE (01:42)
--- NOTE | 2018-02-17 07:57 | EKG ---
Test Date: 2018-02-16 Test Time: 19:54:11 Railroad Firer: REY MEASUREMENT RESULTS: Intervals: Rate: 83 UT: QRSD: 76 QT: 362 QTc: 425 [place]: P: UT: QRS: 77 T: 264 INTERPRETIVE STATEMENTS: Atrial fibrillation with occasional ventricular-paced complexes ST & T wave abnormality, consider anterolateral ischemia Abnormal ECG No previous ECG available for comparison Electronically Signed On 02-17-18 07:56:59 CDT by Bjorn De Paz
[2018-02-17] MEDS ORDERED: FUROSEMIDE 20 MG/ 2ML VIAL IV SCH (09:00)
--- NOTE | 2018-02-17 10:09 | P.PN ---
Subjective Date of Service: 02/17/18 Chief Complaint: Shortness of breath Patient is 87 years of age well known to me he has a history of COPD admitted with worsening dyspnea failed outpatient therapy with bronchodilators and steroids complaining of dyspnea on mild exertion hence the reason for his admission denies any fever chills cough sputum or hemoptysis he was unable to look after himself at home also complained of lower extremity edema Review of Systems General: Weakness Respiratory: Shortness of Breath Physical Examination - Vital Signs Temperature: 97.0 F Blood Pressure: 139/93 Pulse: 65 Respirations: 18 Pulse Ox (%): 93 - Physical Exam General: Alert, Oriented x3 Neck: Supple Respiratory: Crackles/rales, Expiratory wheezes Cardiovascular: No edema, Normal S1 S2 - Studies Laboratory Data (last 24 hrs) 02/16/18 22:45: PT 17.3 H, INR 1.46 02/16/18 22:45: WBC 6.8, Hgb 12.8 L, Hct 41.9, Plt Count 158 02/16/18 22:45: B-Natriuretic Peptide 174 H 02/16/18 22:45: Sodium 140, Potassium 3.9, BUN 35 H, Creatinine 1.33 H, Glucose 97 Assessment & Plan - Problems (Diagnosis) (1) Shortness of breath Current Visit: Yes Status: Acute Plan: Patient is 87 years of age with a history of COPD sleep apnea admitted with a progressive dyspnea unresponsive to bronchodilator therapy at home including treatment with steroids the started complaining of worsening edema he probably has underlying heart failure possible diastolic dysfunction patient needs to be admitted for aggressive diuresis I have added spironolactone steroids bronchodilators labs reviewed mildly elevated creatinine I have added spironolactone indeed continue with IV Lasix chest x-ray shows some interstitial changes possible he that he has pulmonary fibrosis the order a CT scan of the chest without contrast he does have a mild microcytosis with anemia order some iron level patient's RDW is elevated
[2018-02-17 10:33] LABS: Arterial Blood Carboxyhemoglob 1.7 % (0-1.5); Blood Gas Oxyhemoglobin 88.9 % (94-97); Blood O2 Saturation 91.9 % (92-98.5)
[2018-02-17] MEDS ORDERED: SPIRONOLACTONE 25 MG TABLET PO SCH (11:00)
--- NOTE | 2018-02-17 11:07 | RAD REPORT ---
EXAM DESCRIPTION: CT - Thorax Wo Con - 02/17/2018 10:43 am CLINICAL HISTORY: sob COMPARISON: February 16, 2018 chest x-ray TECHNIQUE: Computed axial tomography of the chest was obtained. Contrast was not requested. All CT scans are performed using dose optimization technique as appropriate and may include automated exposure control or mA/KV adjustment according to patient size. FINDINGS: The evaluation of mediastinum, reynaldo and vessels is limited secondary to lack of IV contras t administration. Mild bilateral interstitial lung opacities are mostly subpleural and appear chronic. A lung consolida tion is not seen. No mediastinal or hilar lymphadenopathy is seen. Coronary arterial calcifications are present A pleural effusion is not present. A pericardial effusion is not present. The heart is enlarged. A small to moderate hiatal hernia is present. Most inferior slice demonstrates a 7 millimeter nodular opacity within the retrocrural region IMPRESSION: Mild bilateral interstitial lung opacities have the appearance of pulmonary fibrosis 7 millimeter nodular opacity within the retrocrural region is incompletely evaluated. It may represen t a lymph node or vessels. If it is a lymph noted is mildly enlarged given its location. A followup C T abdomen in 3 6 months could be obtained for re-evaluation
[2018-02-17 11:45] LABS: Ferritin 22.2 ng/ml (23.9-336.2)
[2018-02-17] MEDS: METHYLPREDNISOLONE 40 MG INJ IV SCH ×2 (12:21→17:55)
[2018-02-17] MEDS: IPRATROPIUM BROM 0.5MG/2.5ML NEB SCH ×2 (13:43→19:57)
--- NOTE | 2018-02-17 14:53 | ECHO ---
HEIGHT: 5 ft 3 in WEIGHT: 153 lb 7 oz DATE OF STUDY: 02/17/[address]: Saad Burnham MD 2-DIMENSIONAL: YES M.MODE: YES DOPPLER: YES COLOR FLOW: YES TDS: YES PORTABLE: DEFINITY: BUBBLE STUDY: DIAGNOSIS: POSSIBLE CONGESTIVE HEART FAILURE CARDIAC HISTORY: CATHERIZATION: YES SURGERY: NO PROSTHETIC VALVE: NO PACEMAKER: YES MEASUREMENTS (cm) DIASTOLIC (NORMALS) SYSTOLIC (NORMALS) IVSd 1.0 (0.6-1.2) LA Diam 4.5 (1.9-4.0) LVEF 61% LVIDd 3.4 (3.5-5.7) LVIDs 2.3 (2.0-3.5) %FS 32% LVPWd 1.1 (0.6-1.2) Ao Diam 3.1 (2.0-3.7) 2 DIMENSIONAL ASSESSMENT: RIGHT ATRIUM: MARKEDLY DILATED LEFT ATRIUM: NORMAL RIGHT VENTRICLE: MARKEDLY DILATED LEFT VENTRICLE: NORMAL TRICUSPID VALVE: NORMAL MITRAL VALVE: NORMAL PULMONIC VALVE: NORMAL AORTIC VALVE: NORMAL PERICARDIAL EFFUSION: NONE AORTIC ROOT: NORMAL LEFT VENTRICULAR WALL MOTION: NORMAL DOPPLER/COLOR FLOW: MILD AORTIC AND MITRAL REGURGITATION. MODERATE TRICUSPID REGURGITATION. SEVERE PULMONARY HYPERTENSION. ESTIMATED RIGHT VENTRICULAR SYSTOLIC PRESSURE. COMMENTS: NORMAL LEFT VENTRICULAR EJECTON FRACTION. MARKEDLY DILATED RIGHT ATRIUM AND RIGHT VENTRICLE. MILD AORTIC AND MITRAL REGURGITATION. SEVERE PULMONARY HYPERTENSION. TECHNOLOGIST: CHRISTIE OTTO
[2018-02-17 14:59] LABS: Urine Appearance CLEAR; Urine Bilirubin NEGATIVE (NEG); Urine Blood NEGATIVE (NEG); Urine Color YELLOW; Urine Glucose NEGATIVE (NEG); Urine Protein NEGATIVE (NEG); Urine Urobilinogen 0.2 mg/dL (0.2-1.0); Urine pH 5.5 (5.0-7.0)
[2018-02-17 15:05] LABS: Urine Bacteria NONE SEEN /HPF (NONE SEEN); Urine Culture Reflex Order NOT NEEDED; Urine RBC <5 /HPF (NONE SEEN)
--- NOTE | 2018-02-17 16:52 | P.HP ---
Certification for Inpatient Patient admitted to: Inpatient With expected LOS: >2 Midnights Practitioner: I am a practitioner with admitting privileges, knowledge of patient current condition, hospital course, and medical plan of care. Services: Services provided to patient in accordance with Admission requirements found in Title 42 Section 412.3 of the Code of Federal Regulations Patient History Date of Service: 02/17/18 Reason for admission: Shortness of breath History of Present Illness: MR. GRIGGS IS FRAIL 87 YEARS OLD FORMER SMOKER WITH PVD, CAD, COPD AND PULMONARY FIBROSIS HAS BEEN GOING TO DR. ENGEL FOR DYSPNEA FOR A WHILE. HE FAILED OUTPATIENT THERAPY SO DR. BORJA SENT HIM TO ER. MR. GRIGGS HAS BEEN WHEEZING. HE DENIES ANY CHEST PAIN. Allergies No Known Allergies Allergy (Unverified 02/17/18 03:20) - Past Medical/Surgical History Has patient received pneumonia vaccine in the past: Yes Diabetic: No -: COPD -: GERD -: Sleep apnea -: [place] -: Pacemaker - Family History Father History Unknown: Yes - Social History Smoking Status: Former smoker Alcohol use: No CD- Drugs: No Caffeine use: No Place of Residence: Home Review of Systems 10-point ROS is otherwise unremarkable General: Weakness, Malaise Respiratory: Shortness of Breath, Wheezing Physical Examination - Vital Signs Temperature: 97.0 F Blood Pressure: 111/79 Pulse: 99 Respirations: 16 Pulse Ox (%): 95 - Physical Exam General: Alert, Mild distress, Moderate distress HEENT: Atraumatic, PERRLA, Mucous membr. moist/pink, EOMI, Sclerae nonicteric Neck: Supple, 2+ carotid pulse no bruit, No LAD, Without JVD or thyroid abnormality Respiratory: Diminished, Expiratory wheezes Cardiovascular: Edema Gastrointestinal: Normal bowel sounds, No tenderness Musculoskeletal: No tenderness Integumentary: No rashes Neurological: Normal gait, Normal speech, Normal strength at 5/5 x4 extr, Normal tone, Normal affect Lymphatics: No axilla or inguinal lymphadenopathy - Studies Laboratory Data (last 24 hrs) 02/16/18 22:45: PT 17.3 H, INR 1.46 02/16/18 22:45: WBC 6.8, Hgb 12.8 L, Hct 41.9, Plt Count 158 02/16/18 22:45: B-Natriuretic Peptide 174 H 02/16/18 22:45: Sodium 140, Potassium 3.9, BUN 35 H, Creatinine 1.33 H, Glucose 97 Assessment and Plan - Problems (Diagnosis) (1) Shortness of breath Current Visit: Yes Status: Chronic Plan: HIS SYMPTOMS ARE MAINLY LUNG RELATED CXR OR CT SCAN DO NOT SHOW CHF (2) COPD exacerbation Current Visit: Yes Status: Chronic Plan: IV STEROIDS NEBS BROVANA ZPAK STOP DIURETICS HIS EDEMA IS MOST LIKELY FROM COR PULMONALE. ECHO IS PENDING HE HAS CORONARY HISTORY BUT CURRENTLY THIS EPISODE SEEMS TO BE PULMONARY IN ORIGIN. - Advance Directives Does patient have a Living Will: No Does patient have a Durable POA for Healthcare: No
--- NOTE | 2018-02-17 17:56 | RAD REPORT ---
EXAM DESCRIPTION: VASExtrem Venous W Compress Bil02/17/2018 5:47 pm CLINICAL HISTORY: Bilateral leg swelling COMPARISON: none FINDINGS: The common femoral, superficial femoral, popliteal and posterior tibial veins bilaterally are compressible and demonstrate augmentation. Doppler demonstrates good flow. IMPRESSION: No evidence of deep venous thrombosis involving either lower extremity.
[2018-02-17] MEDS: ARFORMOTEROL TARTRATE 15 MCG/2 ML VIAL.NEB NEB SCH (19:58)
[2018-02-17] MEDS ORDERED: ARFORMOTEROL TARTRATE 15 MCG/2 ML VIAL.NEB NEB SCH (20:00)
[2018-02-18] MEDS: METHYLPREDNISOLONE 40 MG INJ IV SCH ×2 (00:29→09:32)
[2018-02-18] MEDS: IPRATROPIUM BROM 0.5MG/2.5ML NEB SCH ×3 (01:20→13:51)
[2018-02-18 05:29] LABS: Absolute Lymphocytes (CBC) 0.7 K/uL (0.7-4.9); Absolute Monocytes 0.1 K/uL (0.1-1.3); Absolute Neutrophil 4.7 K/uL (1.8-8.0); Basophils % 0.1 % (0-1.3); Hematocrit 39.6 % (39.6-49.0); Lymphocytes % 12.5 % (15.3-44.8); MCH 21.6 pg (27.0-35.0); MCV 69.4 fL (80-100); MPV 9.3 fL (7.6-11.3); Monocytes % 1.2 % (3.3-12.3); RBC Red Blood Cell Count 5.71 M/uL (4.33-5.43)
[2018-02-18 05:48] LABS: Potassium 4.5 mEq/L (3.6-5.0)
[2018-02-18] MEDS ORDERED: PANTOPRAZOLE 40MG TABLET PO SCH (07:00)
[2018-02-18] MEDS: ESCITALOPRAM 20 MG TAB PO SCH ×2 (07:00→09:32)
[2018-02-18 07:07] LABS: Anisocytosis 2+; Blood Morphology Comment NOTED (NOT SEEN); Hypochromasia 1+; Platelet Estimate ADEQ; Poikilocytosis 1+
[2018-02-18] MEDS: ARFORMOTEROL TARTRATE 15 MCG/2 ML VIAL.NEB NEB SCH (08:00)
[2018-02-18] MEDS ORDERED: CALCITROL 0.25 MCG CAP PO SCH (09:00)
[2018-02-18] MEDS ORDERED: ALLOPURINOL 300 MG TAB PO SCH (09:00)
[2018-02-18] MEDS ORDERED: RIVAROXABAN 15 MG TABLET PO SCH (09:00)
[2018-02-18] MEDS ORDERED: AZITHROMYCIN 250 MG TAB PO SCH (09:00)
[2018-02-18] MEDS ORDERED: ATORVASTATIN 10 MG TAB PO SCH (09:00)
[2018-02-18] MEDS ORDERED: TAMSULOSIN 0.4 MG SR CAP PO SCH (09:00)
[2018-02-18] MEDS: GABAPENTIN 100 MG CAP PO SCH ×2 (09:32→15:10)
--- NOTE | 2018-02-18 10:30 | P.DS ---
Admission Date: 02/17/18 Discharge Date: 02/18/18 Disposition: DC HOME/HOME HEALTH CARE Discharge Condition: SERIOUS Reason for Admission: Shortness of breath - Problems (1) Shortness of breath Current Visit: Yes Status: Chronic (2) COPD exacerbation Current Visit: Yes Status: Chronic Brief History of Present Illness: MR. GRIGGS IS FRAIL 87 YEARS OLD FORMER SMOKER WITH PVD, CAD, COPD AND PULMONARY FIBROSIS HAS BEEN GOING TO DR. ENGEL FOR DYSPNEA FOR A WHILE. HE FAILED OUTPATIENT THERAPY SO DR. BORJA SENT HIM TO ER. MR. GRIGGS HAS BEEN WHEEZING. HE DENIES ANY CHEST PAIN. MR. GRIGGS HAS HAD SMOKING INDUCED COPD AND HE ABOVE WAS BROUGHT TO ER. HE HAS SEVERE PULMONARY HTN FROM IT ALSO. HE HAS NO MORE WHEEZING ON EXAMINATION. HE IS DECONDITIONED FROM AGING AND COPD. HE WILL CONTINUE TO HAVE DYSPNEA HE ALSO HAS PULM. HTN. I GAVE HIM TRELEGY IF INSURANCE PAYS FOR IT. Vital Signs/Physical Exam: Temp Pulse Resp BP Pulse Ox 97 F 99 H 18 116/74 91 02/18/18 08:00 02/18/18 08:00 02/18/18 08:00 02/18/18 08:00 02/18/18 08:00 Laboratory Data at Discharge: WBC 5.4 K/uL (4.3-10.9) D 02/18/18 05:06 Hgb 12.4 g/dL (13.6-17.9) L 02/18/18 05:06 Hct 39.6 % (39.6-49.0) 02/18/18 05:06 Plt Count 133 K/uL (152-406) L 02/18/18 05:06 PT 17.3 SECONDS (9.5-12.5) H 02/16/18 22:45 INR 1.46 02/16/18 22:45 Sodium 141 mEq/L (135-145) 02/18/18 05:06 Potassium 4.5 mEq/L (3.6-5.0) 02/18/18 05:06 BUN 39 mg/dL (6-20) H 02/18/18 05:06 Creatinine 1.25 mg/dL (0.61-1.24) H 02/18/18 05:06 Glucose 153 mg/dL (65-120) H 02/18/18 05:06 Magnesium 2.0 mg/dL (1.8-2.5) 02/18/18 05:06 Troponin I 0.07 ng/mL (<0.03) H 02/17/18 10:24 B-Natriuretic Peptide 174 pg/ml (<=100) H 02/16/18 22:45 Home Medications: Allopurinol 1 tab PO DAILY 02/17/18 Atorvastatin Calcium 10 mg PO DAILY 02/17/18 Calcitrol [Rocaltrol*] 0.25 mcg PO DAILY 02/17/18 Escitalopram Oxalate [Lexapro] 10 mg PO DAILY 02/17/18 Esomeprazole Mag Trihydrate [Nexium] 40 mg PO DAILY 02/17/18 Gabapentin [Neurontin*] 300 mg PO TID 02/17/18 Prednisone [Deltasone*] 1 tab PO DAILY 02/17/18 Rivaroxaban [Xarelto*] 1 tab PO DAILY 02/17/18 Tamsulosin [Flomax*] 0.4 mg PO DAILY 02/17/18 Albuterol Sulfate [Proair Hfa] 8.5 gm IH TID #1 hfa.aer.ad 02/18/18 Azithromycin Tab [Zithromax*] 500 mg PO DAILY #3 tab 02/18/18 Fluticasone/Umeclidin/Vilanter [Trelegy Ellipta 100-62.5-25] 1 each IH DAILY #1 blst.w.dev 02/18/18 New Medications: Albuterol Sulfate [Proair Hfa] 8.5 gm IH TID #1 hfa.aer.ad Azithromycin Tab [Zithromax*] 500 mg PO DAILY #3 tab Fluticasone/Umeclidin/Vilanter [Trelegy Ellipta 100-62.5-25] 1 each IH DAILY #1 blst.w.dev
--- NOTE | 2018-02-18 10:32 | P.PN ---
Subjective Date of Service: 02/18/18 Chief Complaint: Shortness of breath Patient is a poor historian is agitated still short of breath t 2D echocardiogram shows severe pulmonary hypertension with right ventricular dilatation. s has not ambulated Review of Systems General: Weakness Respiratory: Shortness of Breath Physical Examination - Vital Signs Temperature: 97 F Blood Pressure: 116/74 Pulse: 99 Respirations: 18 Pulse Ox (%): 91 - Physical Exam General: Alert, Oriented x3 HEENT: Atraumatic Neck: Supple Respiratory: Clear to auscultation bilaterally Cardiovascular: No edema, Regular rate/rhythm Assessment & Plan - Problems (Diagnosis) (1) Shortness of breath Current Visit: Yes Status: Chronic Plan: No changes still complains of shortness of breath will plan to ambulate echocardiogram is abnormal shows severe pulmonary hypertension with right ventricular dilatation patient is already anti coagulated with Xarelto of ordered a CT pulmonary angiogram continue with diuretics patient is hypoxic on room air over is room-air sat is 94% PO2 61 possible discharge tomorrow on a higher dose of Lasix and low-dose spironolactone no evidence of an infection
--- NOTE | 2018-02-18 13:22 | RAD REPORT ---
EXAM DESCRIPTION: CT - Chest For Pe Angio - 02/18/2018 1:02 pm CLINICAL HISTORY: sob COMPARISON: February 17, 2018 TECHNIQUE: Dynamically enhanced axial 3 mm thick images of the chest were obtained during administra tion of <100> mL Isovue 370 IV contrast. Coronal and oblique reconstruction images were generated and reviewed. Exam utilizes a protocol for optimal evaluation of pulmonary arterial tree. All CT scans are performed using dose optimization technique as appropriate and may include automated exposure control or mA/KV adjustment according to patient size. FINDINGS: A pulmonary embolus is not seen. The central pulmonary artery is enlarged which may indicate pulmonary arterial hypertension. The hear t is enlarged. A thoracic aortic aneurysm is not noted. A pleural effusion is not seen. A pericardial effusion is not seen. A lung consolidation is not present. A small to moderate hiatal hernia is present. A mildly enlarged retrocrural lymph node is again demon strated IMPRESSION: Negative for a pulmonary embolism.
[2018-02-18] MEDS ORDERED: predniSONE 20 MG TAB PO SCH (21:00)
== END 2018-02-18 17:11 | disposition home health service (06) | DRG 192 ==
LOC: ER 17:02 → ERHOLD 02-17 00:47 → 2ND 02-17 02:44
PROVIDERS: ADMIT Internal Medicine; ATTEND Internal Medicine
DX: J44.1 Chronic obstructive pulmonary disease with (acute) exacerbation (principal); I73.9 Peripheral vascular disease, unspecified; K21.9 Gastro-esophageal reflux disease without esophagitis; G47.30 Sleep apnea, unspecified; Z95.0 Presence of cardiac pacemaker; Z87.891 Personal history of nicotine dependence
CPT/HCPCS: 36415; 71045; 71250; 71275; 80048; 81001; 81003; 82728; 82805; 83735; 83880; 84466; 84484; 85025; 85610; 93005; 93306; 93970; 94640; 96374; 99285; J1940; J2920; J7605; Q9967